=== PATIENT | female | born 1985 | race Caucasian/White ===

== ENCOUNTER → 2016-10-23 | Outpatient (CLI) | payer MEDICARE, MEDICAID ==
[~2016-10-23] MED LIST: BENZ1TAB6; BUDE90AE2 IH; HALO5TAB; LEVO500T2 PO; LORA0.5T; LURA120T; METF1000; OXYB5TAB9; PRAZ2CAP2; VENL75CA93
== END ==
LOC: RT 14:07
PROVIDERS: ATTEND Nurse Practitioner Family
DX: R06.02 Shortness of breath (principal)
CPT/HCPCS: 94060; 94726; 94729

== ENCOUNTER 2017-06-11 10:36 | Outpatient (CLI) | payer MEDICARE, MEDICAID ==
[~2017-06-11] VITALS: Ht 154.9 cm; Wt 113.4 kg
[~2017-06-11 10:36] MED LIST changes: -BENZ1TAB6; +BENZ1TAB6 PO; -HALO5TAB; +HALO5TAB PO; -LURA120T; +LURA120T PO
[2017-06-11] MEDS ORDERED: METF500T4 PO ×2 (11:25)
[2017-06-11] MEDS ORDERED: PRAZ2CAP2 PO ×2 (11:25)
[2017-06-11] MEDS ORDERED: NF-LAMO200 PO ×2 (11:25)
[2017-06-11] MEDS ORDERED: DULA0.75 SQ ×2 (11:25)
[2017-06-11] MEDS ORDERED: VENL150T PO ×2 (11:30)
[2017-06-11] MEDS ORDERED: ATOR40TA PO ×2 (11:30)
[2017-06-11] MEDS ORDERED: RT-ALBUINH IH ×2 (11:30)
[2017-06-11] MEDS ORDERED: UMEC62.5 IH ×2 (11:30)
[2017-06-11] MEDS ORDERED: VENL37.57 PO ×2 (11:30)
[2017-06-12] MEDS ORDERED: HYDR-3812 PO ×2 (14:10)
[2017-06-12] MEDS ORDERED: DOCU-143 PO ×2 (14:10)
== END 2017-06-11 11:33 ==
LOC: PREOP 10:36
PROVIDERS: ATTEND Surgery
DX: Z01.818 Encounter for other preprocedural examination (principal); L05.91 Pilonidal cyst without abscess

== ENCOUNTER 2017-06-12 10:47 | Day surgery (SDC) | payer MEDICARE, MEDICAID ==
[~2017-06-12] VITALS: Ht 154.9 cm; Wt 113.4 kg
[~2017-06-12 10:47] MED LIST changes: +ATOR40TA PO; +DULA0.75 SQ; +METF500T4 PO; +NF-LAMO200 PO; +PRAZ2CAP2 PO; +RT-ALBUINH IH; +UMEC62.5 IH; +VENL150T PO; +VENL37.57 PO
--- OUTSIDE RECORDS SUMMARY | 2017-06-12 10:51 | XMS REPORT ---
Author Author SUPRIYA RODRIGUEZ [facility] eClinicalWorks Address Unknown Phone Unavailable Care Team Providers Care Invoice Checker Name Role Phone SUPRIYA RODRIGUEZ CP Unavailable Allergies, Adverse Reactions, Alerts Substance Reaction Event Type Flexeril A-fib Drug Allergy Clozaril Info Not Available Drug Allergy Aspirin nose bleeds Drug Allergy Problems Problem Type Condition Code Onset Dates Condition Status Assessment Encounter for immunization Z23 Active Assessment Gastroesophageal reflux disease without esophagitis K21.9 Active Assessment Abdominal pain, right upper quadrant R10.11 Active Medications Medication Code System Code Instructions Start Date End Date Status Dosage Haloperidol [facility] [address]-17 5 mg December 28, 2014 take 1 tablet ( 5 mg) by oral route 2 times per day PRN Ativan [facility] [address]-84 0.5 mg December 28, 2014 take 1 tablet (0.5 mg) by oral route 2 times per day Omeprazole [facility] [address]-95 20 MG Orally Once a day Aug 03, 2014 take 1 capsule (20 mg) by oral route once daily before a meal Effexor XR [facility] [address]-92 150 MG Orally Sep 30, 2012 take 1 capsule (150 mg) by oral route once daily with food Lancets [facility] 0 - December 20, 2013 1 time per day ONE TOUCH DELICA LANCETS prazosin ND 0 2 mg orally Once a day at bedtime Sep 30, 2012 1 Oxybutynin Chloride [facility] [address]-15 5 MG Orally Twice a day February 21, 2015 1 tablet Metformin HCl [facility] [address]-88 1000 MG Orally Twice a day Jun 29, 2015 0.5 Victoza [facility] [address]-44 1.2 Once a day not defined benztropine ND 0 1 mg Jul 23, 2013 take 1 tablet (1 mg) by oral route 2 times per day Latuda [facility] [address]-59 120 MG Orally Nov 03, 2014 take 1 tablet by Oral route with food (at least 350 calories) 1 time per day Effexor NDC 0 75 MG Orally Once a day 1 tablet with food ProAir HFA [facility] [address]-52 90 mcg/actuation May 06, 2014 inhale 2 puffs by Inhalation route every 4-6 hours as needed PRN shortness of breath/cough Nicotine [facility] [address]-58 21 MG/24HR Transdermal Once a day Jul 19, 2015 Aug 18, 2015 1 patch to skin Procedures Procedure Coding System Code Date Office Visit, Est Pt., Level 3 CPT-4 13933 Aug 17, 2015 FLUARIX QUAD (3 & UP)-GSK-2014 CPT-4 23786 Aug 17, 2015 [facility] VISIT ESTABLISHED PATIENT CPT-4 G0467 Aug 17, 2015 SINGLE IMMUNIZATION ADMIN CPT-4 11416 Aug 17, 2015 Vital Signs Date/Time: Aug 17, 2015 Temperature 97.6 F Weight 258.2 lbs Height 62 in BMI 47.22 Index Blood Pressure Diastolic 72 mmHg Blood Pressure Systolic 124 mmHg Cardiac Monitoring Heart Rate 86 bpm Results No Known Results Immunizations Vaccine Administration Date FLUARIX QUAD (3 & UP)-GSK-2014Aug 17, 2015 Summary Purpose eClinicalWorks Submission
--- OUTSIDE RECORDS SUMMARY | 2017-06-12 10:51 | XMS REPORT ---
Author Author SUPRIYA RODRIGUEZ Organization eClinicalWorks Address Unknown Phone Unavailable Care Team Providers Care Wire Rope Fabrication Supervisor Name Role Phone SUPRIYA RODRIGUEZ CP Unavailable Allergies No Known Allergies Problems No Known Problems Medications Medication Code System Code Instructions Start Date End Date Status Dosage Atorvastatin Calcium [facility] [address]-82 40 MG Orally Once a day Sep 01, 2015 1 tablet Results No Known Results Summary Purpose eClinicalWorks Submission
--- OUTSIDE RECORDS SUMMARY | 2017-06-12 10:52 | XMS REPORT ---
Author Author SUPRIYA RODRIGUEZ [facility] eClinicalWorks Address Unknown Phone Unavailable Care Team Providers Care Payroll And Benefits Manager Name Role Phone SUPRIYA RODRIGUEZ CP Unavailable Allergies, Adverse Reactions, Alerts Substance Reaction Event Type Flexeril A-fib Drug Allergy Clozaril Info Not Available Drug Allergy Aspirin nose bleeds Drug Allergy Problems Problem Type Condition ICD-9 Code Onset Dates Condition Status Problem Screening for malignant neoplasm of the cervix V76.2 Active Assessment Esophageal reflux disease 530.81 Active Problem Dietary surveillance and counseling V65.3 Active Assessment Diabetes type 2, controlled 250.00 Active Problem Obesity, unspecified 278.00 Active Problem Irregular menstrual cycle 626.4 Active Problem Female stress incontinence 625.6 Active Problem Acute bronchitis 466.0 Active Problem Other abnormal glucose 790.29 Active Problem Throat pain 784.1 Active Problem Acute mucoid otitis media 381.02 Active Problem Diabetes type 2, controlled 250.00 Active Problem Nondependent tobacco use disorder 305.1 Active Problem Morbid obesity 278.01 Active Problem Hirsutism 704.1 Active Problem Heartburn 787.1 Active Problem Need for prophylactic vaccination and inoculation, Influenza V04.81 Active Problem Leukorrhea, not specified as infective 623.5 Active Problem Other and unspecified hyperlipidemia 272.4 Active Problem Other diseases of nasal cavity and sinuses 478.19 Active Problem Dysmetabolic Syndrome X 277.7 Active Problem Routine gynecological examination V72.31 Active Problem Counseling on substance use and abuse V65.42 Active Problem 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 Problem Unspecified procreative management V26.9 Active Medications Medication Code System Code Instructions Start Date End Date Status Dosage Omeprazole [facility] [address]-90 20 MG Orally Once a day Aug 03, 2014 take 1 capsule (20 mg) by oral route once daily before a meal benztropine NDC 0 1 mg Jul 23, 2013 take 1 tablet (1 mg) by oral route 2 times per day Haloperidol [facility] [address]-56 5 mg December 28, 2014 take 1 tablet ( 5 mg) by oral route 2 times per day PRN Effexor NDC 0 75 MG Orally Once a day 1 tablet with food prazosin NDC 0 2 mg orally Once a day at bedtime Sep 30, 2012 1 Latuda [facility] [address]-61 120 MG Orally Nov 03, 2014 take 1 tablet by Oral route with food (at least 350 calories) 1 time per day ProAir HFA [facility] [address]-36 90 mcg/actuation May 06, 2014 inhale 2 puffs by Inhalation route every 4-6 hours as needed PRN shortness of breath/cough Metformin HCl [facility] [address]-43 1000 MG Orally Twice a day Jun 29, 2015 1 tablet with meals Ativan [facility] [address]-64 0.5 mg December 28, 2014 take 1 tablet (0.5 mg) by oral route 2 times per day Oxybutynin Chloride [facility] [address]-02 5 MG Orally Twice a day February 21, 2015 1 tablet Effexor XR [facility] [address]-10 150 MG Orally Sep 30, 2012 take 1 capsule (150 mg) by oral route once daily with food Lancets [facility] 0 - December 20, 2013 1 time per day ONE TOUCH DELICA LANCETS Procedures Procedure Coding System Code Date [facility] VISIT ESTABLISHED PATIENT CPT-4 G0467 Jun 29, 2015 Office Visit, Est Pt., Level 3 CPT-4 73328 Jun 29, 2015 GLYCATED HEMOGLOBIN TEST CPT-4 33129 Jun 29, 2015 Vital Signs Date/Time: Jun 29, 2015 Temperature 98.8 F Weight 265.5 lbs Height 62 in BMI 48.56 Index Blood Pressure Diastolic 74 mmHg Blood Pressure Systolic 118 mmHg Cardiac Monitoring Heart Rate 92 bpm Results Name Result Date Reference Range Unit Abnormality Flag A1C (IN HOUSE) Summary Purpose eClinicalWorks Submission
--- OUTSIDE RECORDS SUMMARY | 2017-06-12 10:52 | XMS REPORT ---
Author Author SUPRIYA RODRIGUEZ Organization eClinicalWorks Address Unknown Phone Unavailable Care Team Providers Care Extruder Name Role Phone SUPRIYA RODRIGUEZ CP Unavailable Allergies No Known Allergies Problems Problem Type Condition Code Onset Dates Condition Status Problem Fatty liver K76.0 Active Problem Stress incontinence in female N39.3 Active Problem Diabetes type 2, controlled E11.9 Active Medications Medication Code System Code Instructions Start Date End Date Status Dosage Trulicity [facility] [address]-75 0.75 MG/0.5ML Subcutaneous once a week Oct 03, 2015 0.5 ml Results No Known Results Summary Purpose eClinicalWorks Submission
--- OUTSIDE RECORDS SUMMARY | 2017-06-12 10:52 | XMS REPORT ---
Author Author SUPRIYA RODRIGUEZ Organization eClinicalWorks Address Unknown Phone Unavailable Care Team Providers Care Silvering Applicator Name Role Phone SUPRIYA RODRIGUEZ CP Unavailable Allergies No Known Allergies Problems Problem Type Condition Code Onset Dates Condition Status Assessment Diabetes mellitus without mention of complication, type II or unspecified type, not stated as uncontrolled 250.00 Active Medications No Known Medications Procedures Procedure Coding System Code Date VENIPUNCT, ROUTINE* CPT-4 48302 Aug 29, 2015 MICROALBUMIN, SEMIQUANT CPT-4 85617 Aug 29, 2015 [facility] NOBLL Aug 29, 2015 Results Name Result Date Reference Range Unit Abnormality Flag ROUTINE VENIPUNCTURE Summary Purpose eClinicalWorks Submission
--- OUTSIDE RECORDS SUMMARY | 2017-06-12 10:52 | XMS REPORT ---
Author Author SUPRIYA RODRIGUEZ Organization eClinicalWorks Address Unknown Phone Unavailable Care Team Providers Care Court Recording Monitor Name Role Phone SUPRIYA RODRIGUEZ CP Unavailable Allergies No Known Allergies Problems Problem Type Condition Code Onset Dates Condition Status Problem Stress incontinence in female N39.3 Active Problem Self-mutilation Z72.89 Active Problem Anxiety F41.9 Active Problem Abrasion hip/leg S80.819A Active Problem Diabetes type 2, controlled E11.9 Active Problem Fatty liver K76.0 Active Problem Gastroesophageal reflux disease without esophagitis K21.9 Active Problem Callus of foot L84 Active Medications No Known Medications Results No Known Results Summary Purpose eClinicalWorks Submission
--- OUTSIDE RECORDS SUMMARY | 2017-06-12 10:52 | XMS REPORT ---
Author Author SUPRIYA RODRIGUEZ Organization eClinicalWorks Address Unknown Phone Unavailable Care Team Providers Care Kelp Gatherer Name Role Phone SUPRIYA RODRIGUEZ CP Unavailable Allergies No Known Allergies Problems No Known Problems Medications Medication Code System Code Instructions Start Date End Date Status Dosage Atorvastatin Calcium [facility] [address]-66 20 MG Orally Once a day Aug 25, 2015 1 tablet Results No Known Results Summary Purpose eClinicalWorks Submission
--- OUTSIDE RECORDS SUMMARY | 2017-06-12 10:52 | XMS REPORT ---
Author Author SUPRIYA RODRIGUEZ Organization eClinicalWorks Address Unknown Phone Unavailable Care Team Providers Care Automotive Internet Sales Manager Name Role Phone SUPRIYA RODRIGUEZ CP Unavailable Allergies No Known Allergies Problems Problem Type Condition Code Onset Dates Condition Status Problem Diabetes type 2, controlled E11.9 Active Problem Fatty liver K76.0 Active Problem Callus of foot L84 Active Problem Stress incontinence in female N39.3 Active Medications Medication Code System Code Instructions Start Date End Date Status Dosage Nicoderm [facility] [address]-30 14 MG/24HR Transdermal Once a day May 14, 2016 1 patch to skin Results No Known Results Summary Purpose eClinicalWorks Submission
--- OUTSIDE RECORDS SUMMARY | 2017-06-12 10:52 | XMS REPORT ---
Author Author SUPRIAY RODRIGUEZ Organization eClinicalWorks Address Unknown Phone Unavailable Care Team Providers Care Business Sales Consultant Name Role Phone SUPRIYA RODRIGUEZ CP Unavailable Allergies No Known Allergies Problems Problem Type Condition Code Onset Dates Condition Status Problem Gastroesophageal reflux disease without esophagitis K21.9 Active Problem Callus of foot L84 Active Problem Anxiety F41.9 Active Problem Stress incontinence in female N39.3 Active Assessment Encounter for immunization Z23 Active Problem Diabetes type 2, controlled E11.9 Active Problem Fatty liver K76.0 Active Medications No Known Medications Procedures Procedure Coding System Code Date SINGLE IMMUNIZATION ADMIN CPT-4 97199 Jul 16, 2016 FLUARIX QUAD P-FREE 3 AND UP .50 2015 CPT-4 83447 Jul 16, 2016 Results No Known Results Immunizations Vaccine Administration Date FLUARIX QUAD P-FREE 3 AND UP .50 2015Jul 16, 2016 Summary Purpose eClinicalWorks Submission
--- OUTSIDE RECORDS SUMMARY | 2017-06-12 10:52 | XMS REPORT ---
Author Author SUPRIYA RODRIGUEZ [facility] eClinicalWorks Address Unknown Phone Unavailable Care Team Providers Care Drain Layer Name Role Phone SUPRIYA RODRIGUEZ CP Unavailable Allergies, Adverse Reactions, Alerts Substance Reaction Event Type Flexeril A-fib Drug Allergy Clozaril Info Not Available Drug Allergy Aspirin nose bleeds Drug Allergy Problems Problem Type Condition Code Onset Dates Condition Status Assessment Self-mutilation Z72.89 Active Problem Stress incontinence in female N39.3 Active Assessment Abrasion hip/leg S80.819A Active Assessment Diabetes type 2, controlled E11.9 Active Problem Self-mutilation Z72.89 Active Problem Anxiety F41.9 Active Problem Abrasion hip/leg S80.819A Active Problem Diabetes type 2, controlled E11.9 Active Problem Fatty liver K76.0 Active Problem Gastroesophageal reflux disease without esophagitis K21.9 Active Problem Callus of foot L84 Active Medications Medication Code System Code Instructions Start Date End Date Status Dosage Vistaril [facility] [address]-09 25 MG Orally 4 times a day 1 capsule as needed Bactroban [facility] [address]-58 2 % Externally 2 times a day Aug 20, 2016 Aug 27, 2016 1 application to affected area Effexor XR [facility] [address]-82 75 MG Orally Once a day 1 capsule with food prazosin ND 0 2 mg orally Once a day at bedtime Sep 30, 2012 1 Atorvastatin Calcium [facility] 36015527406 40 MG Orally Once a day 1 tablet Latuda [facility] [address]-20 40 mg Orally Once a day at night 1 tablet with food Lamictal [facility] [address]-54 200 MG Orally Once a day 1 tablets Trulicity [facility] 35166685883 0.75 MG/0.5ML Subcutaneous once a week 0.5 ml Haloperidol [facility] [address]-12 5 mg December 28, 2014 take 1 tablet ( 5 mg) by oral route 2 times per day PRN benztropine ND 0 1 mg 2 times a day Jul 23, 2013 take 1 tablet (1 mg) in am and 2 tabs in pm ProAir HFA [facility] [address]-51 90 mcg/actuation Inhalation every 4-6 hours May 06, 2014 inhale 2 puffs by Inhalation route every 4-6 hours as needed PRN shortness of breath/cough Triamcinolone Acetonide [facility] [address]-73 0.1 % Externally Twice a day January 23, 2016 1 application to affected area Metformin HCl [facility] [address]-49 500 MG Orally Twice a day Oct 31, 2015 1 tablet with meals Effexor XR [facility] [address]-92 150 MG Orally Sep 30, 2012 take 1 capsule (150 mg) by oral route once daily with food Lancets [facility] 0 - December 20, 2013 1 time per day ONE TOUCH DELICA LANCETS Omeprazole [facility] [address]-58 20 mg Orally Once a day Aug 03, 2014 take 1 capsule (20 mg) by oral route once daily before a meal Latuda [facility] [address]-95 120 MG Orally Nov 03, 2014 take 1 tablet by Oral route with food (at least 350 calories) 1 time per day Procedures Procedure Coding System Code Date [facility] VISIT ESTABLISHED PATIENT CPT-4 G0467 Aug 20, 2016 Office Visit, Est Pt., Level 3 CPT-4 05802 Aug 20, 2016 [facility] NOB[facility] Aug 20, 2016 VENIPUNCT, ROUTINE* CPT-4 48611 Aug 20, 2016 Vital Signs Date/Time: Aug 20, 2016 Cardiac Monitoring Heart Rate 91 bpm Weight 242 lbs Height 62 in BMI 44.26 Index Blood Pressure Diastolic 70 mmHg Blood Pressure Systolic 110 mmHg Results Name Result Date Reference Range Unit Abnormality Flag ROUTINE VENIPUNCTURE Summary Purpose eClinicalWorks Submission
--- OUTSIDE RECORDS SUMMARY | 2017-06-12 10:52 | XMS REPORT ---
Author Author SUPRIYA RODRIGUEZ Organization eClinicalWorks Address Unknown Phone Unavailable Care Team Providers Care Manager Of Purchasing Name Role Phone SUPRIYA RODRIGUEZ CP Unavailable Allergies No Known Allergies Problems Problem Type Condition Code Onset Dates Condition Status Assessment Type 2 diabetes mellitus without complications E11.9 Active Medications No Known Medications Results No Known Results Summary Purpose eClinicalWorks Submission
--- OUTSIDE RECORDS SUMMARY | 2017-06-12 10:52 | XMS REPORT ---
Author Author SUPRIYA RODRIGUEZ [facility] eClinicalWorks Address Unknown Phone Unavailable Care Team Providers Care Restaurant Mgr Name Role Phone SUPRIYA RODRIGUEZ CP Unavailable Allergies, Adverse Reactions, Alerts Substance Reaction Event Type Flexeril A-fib Drug Allergy Clozaril Info Not Available Drug Allergy Aspirin nose bleeds Drug Allergy Problems Problem Type Condition Code Onset Dates Condition Status Problem Fatty liver K76.0 Active Problem Stress incontinence in female N39.3 Active Problem Diabetes type 2, controlled E11.9 Active Assessment Stress incontinence in female N39.3 Active Assessment Diabetes type 2, controlled E11.9 Active Assessment Fatty liver K76.0 Active Medications Medication Code System Code Instructions Start Date End Date Status Dosage Lancets [facility] 0 - December 20, 2013 1 time per day ONE TOUCH DELICA LANCETS ProAir HFA [facility] [address]-10 90 mcg/actuation May 06, 2014 inhale 2 puffs by Inhalation route every 4-6 hours as needed PRN shortness of breath/cough Ativan [facility] [address]-20 0.5 mg December 28, 2014 take 1 tablet (0.5 mg) by oral route 2 times per day Oxybutynin Chloride [facility] [address]-95 5 MG Orally Twice a day Sep 26, 2015 2 tablet Omeprazole [facility] [address]-82 20 MG Orally Once a day Aug 03, 2014 take 1 capsule (20 mg) by oral route once daily before a meal Latuda [facility] [address]-89 120 MG Orally Nov 03, 2014 take 1 tablet by Oral route with food (at least 350 calories) 1 time per day Haloperidol [facility] [address]-32 5 mg December 28, 2014 take 1 tablet ( 5 mg) by oral route 2 times per day PRN prazosin [facility] 0 2 mg orally Once a day at bedtime Sep 30, 2012 1 Effexor XR [facility] [address]-02 150 MG Orally Sep 30, 2012 take 1 capsule (150 mg) by oral route once daily with food Oxybutynin Chloride [facility] [address]-94 5 MG Orally Twice a day February 21, 2015 1 tablet Atorvastatin Calcium [facility] [address]-09 40 MG Orally Once a day Sep 01, 2015 1 tablet benztropine [facility] 0 1 mg Jul 23, 2013 take 1 tablet (1 mg) by oral route 2 times per day Victoza [facility] [address]-49 18 MG/3ML Subcutaneous Once a day Sep 26, 2015 0.2 ml Lamictal [facility] [address]-41 25 MG Orally Once a day 1 tablets Procedures Procedure Coding System Code Date Office Visit, Est Pt., Level 3 CPT-4 08582 Sep 26, 2015 [facility] VISIT ESTABLISHED PATIENT CPT-4 G0467 Sep 26, 2015 Vital Signs Date/Time: Sep 26, 2015 Temperature 97.0 F Weight 261.3 lbs Height 62 in BMI 47.79 Index Blood Pressure Diastolic 90 mmHg Blood Pressure Systolic 118 mmHg Cardiac Monitoring Heart Rate 87 bpm Results No Known Results Summary Purpose eClinicalWorks Submission
--- OUTSIDE RECORDS SUMMARY | 2017-06-12 10:52 | XMS REPORT ---
Author Author [facility] Address [address] [place] [address] Care Team Providers Care Corporate Development Analyst Name Role Phone SUPRIYA RODRIGUEZ Unavailable PROBLEMS Type Condition ICD9-CM Code XES19-VP Code Onset Dates Condition Status SNOMED Code Problem Gastroesophageal reflux disease without esophagitis K21.9 Active 454373966 Problem Callus of foot L84 Active 090357223 Problem Stress incontinence in female N39.3 Active 57382480 Assessment Diabetes type 2, controlled E11.9 Jun, Active 65776762 Problem Diabetes type 2, controlled E11.9 Active 95665546 Problem Fatty liver K76.0 Active 316654747 ALLERGIES Substance Reaction Event Type Date Status Flexeril A-fib Drug Allergy Jun, Active Clozaril Unknown Drug Allergy Jun, Active Aspirin nose bleeds Drug Allergy Jun, Active SOCIAL HISTORY No smoking Hx information available PLAN OF CARE VITAL SIGNS Height 62 in 2016-06-27 Weight 237.3 lbs 2016-06-27 Heart Rate 90 bpm 2016-06-27 Respiratory Rate 18 2016-06-27 BMI 43.40 kg/m2 2016-06-27 Blood pressure systolic 148 mmHg 2016-06-27 Blood pressure diastolic 88 mmHg 2016-06-27 MEDICATIONS Medication Instructions Dosage Frequency Start Date End Date Duration Status Metformin HCl 500 MG Orally Twice a day 1 tablet with meals 12h Oct, Active Latuda 120 MG take 1 tablet by Oral route with food (at least 350 calories ) 1 time per day Oct, Active Atorvastatin Calcium 40 MG Orally Once a day 1 tablet 24h Active ProAir HFA 90 mcg/actuation Inhalation every 4-6 hours inhale 2 puffs by Inhalation route every 4-6 hours as needed PRN shortness of breath/cough Apr, Active prazosin 2 mg orally Once a day at bedtime 1 Sep, Active Lamictal 200 MG Orally Once a day 1 tablets 24h Active Lancets - 1 time per day ONE TOUCH DELICA LANCETS Dec, Active Effexor XR 150 MG take 1 capsule (150 mg) by oral route once daily with food Sep, Active Vistaril 25 MG Orally 4 times a day 1 capsule as needed 6h Active benztropine 1 mg take 1 tablet (1 mg) in am and 2 tabs in pm 12h Jul, Active Omeprazole 20 mg Orally Once a day take 1 capsule (20 mg) by oral route once daily before a meal 24h Jul, Active ProAir HFA 108 (90 Base) MCG/ACT INHALE TWO (2) PUFFS BY MOUTH EVERY FOUR ( 4) TO SIX (6) HOURS NEEDED FOR SHORTNESS OF BREATH/COUGH. Active Trulicity 0.75 MG/0.5ML Subcutaneous once a week 0.5 ml Sep, Active Trulicity 0.75 MG/0.5ML Subcutaneous once a week 0.5 ml Active Effexor XR 75 MG Orally Once a day 1 capsule with food 24h Active Triamcinolone Acetonide 0.1 % Externally Twice a day 1 application to affected area 12h Jan, Active Haloperidol 5 mg take 1 tablet (5 mg) by oral route 2 times per day PRN Dec, Active RESULTS Name Result Date Reference Range A1C (IN HOUSE) 2016-06-27 A1C IN HOUSE 5.7 4.3 - 5.6 % Previous A1c 5.7 Lot [id number] Exp date 01/2018 PROCEDURES Procedure Date Ordered Related Diagnosis Body Site GLYCATED HEMOGLOBIN TEST Jun 27, 2016 [facility] VISIT ESTABLISHED PATIENT Jun 27, 2016 Office Visit, Est Pt., Level 3 Jun 27, 2016 IMMUNIZATIONS No Known Immunizations
--- OUTSIDE RECORDS SUMMARY | 2017-06-12 10:53 | XMS REPORT ---
Author Author CHERYL JI [facility] eClinicalWorks Address Unknown Phone Unavailable Care Team Providers Care Biologics Specialist Name Role Phone CHERYL JI Unavailable Allergies, Adverse Reactions, Alerts Substance Reaction Event Type Flexeril A-fib Drug Allergy Clozaril Info Not Available Drug Allergy Aspirin nose bleeds Drug Allergy Problems Problem Type Condition Code Onset Dates Condition Status Problem Obesity, unspecified 278.00 Active Problem Irregular menstrual cycle 626.4 Active Problem Female stress incontinence 625.6 Active Problem Acute bronchitis 466.0 Active Problem Throat pain 784.1 Active Problem Other abnormal glucose 790.29 Active Problem Acute mucoid otitis media 381.02 Active Problem Nondependent tobacco use disorder 305.1 Active Problem Diabetes type 2, controlled 250.00 Active Problem Morbid obesity 278.01 Active Problem [...] 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 Problem Screening for malignant neoplasm of the cervix V76.2 Active Assessment Bronchitis 490 Active Problem Unspecified procreative management V26.9 Active Problem Dietary surveillance and counseling V65.3 Active Medications Medication Code System Code Instructions Start Date End Date Status Dosage Latuda [facility] [address]-40 120 MG Orally Nov 03, 2014 take 1 tablet by Oral route with food (at least 350 calories) 1 time per day Lancets [facility] 0 - December 20, 2013 1 time per day ONE TOUCH DELICA LANCETS Omeprazole [facility] [address]-17 20 MG Orally Once a day Aug 03, 2014 take 1 capsule (20 mg) by oral route once daily before a meal Effexor NDC 0 75 MG Orally Once a day 1 tablet with food Metformin HCl [facility] [address]-86 1000 MG Orally Twice a day Jun 29, 2015 0.5 benztropine NDC 0 1 mg Jul 23, 2013 take 1 tablet (1 mg) by oral route 2 times per day Benzonatate [facility] [address]-31 200 MG Orally Three times a day Jul 19, 2015 1 capsule as needed Saxenda [facility] [address]50[address]-46 18 mg/3 mL Subcutaneous Once a day Jul 13, 2015 Week 1: 0.6 mg, Week 2: 1.2 mg, Week 3: 1.8mg, Week 4: 2.4mg, Week 5 3.0 mg (GOAL) Haloperidol [facility] [address]-30 5 mg December 28, 2014 take 1 tablet ( 5 mg) by oral route 2 times per day PRN Nicotine [facility] [address]-22 21 MG/24HR Transdermal Once a day Jul 19, 2015 Aug 18, 2015 1 patch to skin Oxybutynin Chloride [facility] [address]-43 5 MG Orally Twice a day February 21, 2015 1 tablet Ativan [facility] [address]-00 0.5 mg December 28, 2014 take 1 tablet (0.5 mg) by oral route 2 times per day Azithromycin [facility] [address]-76 250 MG Orally Once a day Jul 19, 2015 Jul 24, 2015 2 tablets on the first day, then 1 tablet daily for 4 days prazosin NDC 0 2 mg orally Once a day at bedtime Sep 30, 2012 1 Effexor XR [facility] [address]-01 150 MG Orally Sep 30, 2012 take 1 capsule (150 mg) by oral route once daily with food ProAir HFA [facility] [address]-05 90 mcg/actuation May 06, 2014 inhale 2 puffs by Inhalation route every 4-6 hours as needed PRN shortness of breath/cough Procedures Procedure Coding System Code Date THER/PROPH/DIAG INJ, SC/IM CPT-4 13234 Jul 19, 2015 DEPO MEDROL 40 MG/ML CPT-4 J1030 Jul 19, 2015 KENALOG 40 MG/ML (PER 10 MG) CPT-4 J3301 Jul 19, 2015 Office Visit, Est Pt., Level 3 CPT-4 29754 Jul 19, 2015 [facility] VISIT ESTABLISHED PATIENT CPT-4 G0467 Jul 19, 2015 Vital Signs Date/Time: Jul 19, 2015 Temperature 97.8 F Weight 269 lbs Height 62 in BMI 49.20 Index Blood Pressure Diastolic 70 mmHg Blood Pressure Systolic 130 mmHg Cardiac Monitoring Heart Rate 88 bpm Results No Known Results Summary Purpose eClinicalWorks Submission
--- OUTSIDE RECORDS SUMMARY | 2017-06-12 10:53 | XMS REPORT ---
Author Author SUPRIYA RODRIGUEZ Organization [employer] Address Unknown Phone Unavailable Care Team Providers Care Medical Record Technician Name Role Phone MICHAEL SUPRIYA CP Unavailable Allergies No Known Allergies Problems [...] malignant neoplasm of the cervix V76.2 Active Problem Unspecified procreative management V26.9 Active Problem Dietary surveillance and counseling V65.3 Active Medications Medication Code System Code Instructions Start Date End Date Status Dosage Victoza [facility] [address]-26 18 MG/3ML Subcutaneous Once a day Jul 24, 2015 0.6 mg daily X 2 weeks then 1.2 mg daily Results No Known Results Summary Purpose eClinicalWorks Submission
--- OUTSIDE RECORDS SUMMARY | 2017-06-12 10:53 | XMS REPORT ---
Author Author SUPRIYA RODRIGUEZ [facility] eClinicalWorks Address Unknown Phone Unavailable Care Team Providers Care Appraiser Land Name Role Phone SUPRIYA RODRIGUEZ CP Unavailable Allergies, Adverse Reactions, Alerts Substance Reaction Event Type Flexeril A-fib Drug Allergy Clozaril Info Not Available Drug Allergy Aspirin nose bleeds Drug Allergy Problems Problem Type Condition Code Onset Dates Condition Status Problem Fatty liver K76.0 Active Problem Stress incontinence in female N39.3 Active Problem Diabetes type 2, controlled E11.9 Active Assessment Diabetes type 2, controlled E11.9 Active Assessment Stress incontinence in female N39.3 Active Medications Medication Code System Code Instructions Start Date End Date Status Dosage Metformin HCl [facility] [address]-11 500 MG Orally Twice a day Oct 31, 2015 1 tablet with meals Haloperidol [facility] [address]-02 5 mg December 28, 2014 take 1 tablet ( 5 mg) by oral route 2 times per day PRN Atorvastatin Calcium [facility] [address]-74 40 MG Orally Once a day Sep 01, 2015 1 tablet Oxybutynin Chloride [facility] [address]-68 5 MG Orally Twice a day Sep 26, 2015 2 tablet ProAir HFA [facility] [address]-99 90 mcg/actuation May 06, 2014 inhale 2 puffs by Inhalation route every 4-6 hours as needed PRN shortness of breath/cough Latuda [facility] [address]-70 120 MG Orally Nov 03, 2014 take 1 tablet by Oral route with food (at least 350 calories) 1 time per day Ativan [facility] [address]-87 0.5 mg December 28, 2014 take 1 tablet (0.5 mg) by oral route 2 times per day Effexor XR [facility] [address]-19 150 MG Orally Sep 30, 2012 take 1 capsule (150 mg) by oral route once daily with food Omeprazole [facility] [address]-03 20 MG Orally Once a day Aug 03, 2014 take 1 capsule (20 mg) by oral route once daily before a meal benztropine NDC 0 1 mg 2 times a day Jul 23, 2013 take 1 tablet (1 mg) in am and 2 tabs in pm Lancets NDC 0 - December 20, 2013 1 time per day ONE TOUCH DELICA LANCETS prazosin NDC 0 2 mg orally Once a day at bedtime Sep 30, 2012 1 Effexor XR [facility] [address]-97 75 MG Orally Once a day 1 capsule with food Lamictal [facility] [address]-65 100 MG Orally Once a day 1 tablets Trulicity [facility] [address]-87 0.75 MG/0.5ML Subcutaneous once a week Oct 03, 2015 0.5 ml Procedures Procedure Coding System Code Date URINALYSIS, AUTO, W/O SCOPE CPT-4 30585 Oct 31, 2015 [facility] VISIT ESTABLISHED PATIENT CPT-4 G0467 Oct 31, 2015 GLYCATED HEMOGLOBIN TEST CPT-4 02313 Oct 31, 2015 Office Visit, Est Pt., Level 3 CPT-4 70987 Oct 31, 2015 Vital Signs Date/Time: Oct 31, 2015 Temperature 97.7 F Weight 254.3 lbs Height 62 in BMI 46.51 Index Blood Pressure Diastolic 70 mmHg Blood Pressure Systolic 114 mmHg Cardiac Monitoring Heart Rate 67 bpm Results Name Result Date Reference Range Unit Abnormality Flag A1C (IN HOUSE) ----A1C IN HOUSE 6.0 20151031 4.30 - 5.6 % ----Previous A1c 6.2 20151031 ----Lot # [id number] [id number] ----Exp date 20151031 UA LONG DIP (IN HOUSE) ----DAYANA neg 20151031 ----GLU neg 20151031 ----SG 1.010 20151031 ----KET neg 20151031 ----pH 6.0 20151031 ----Protein neg 20151031 ----BLO neg 20151031 ----LYNDON neg 20151031 ----Color yellow 20151031 ----Odor none 20151031 ----Exp date 20151031 ----URO 0.2 20151031 ----NIT neg 20151031 ----Clarity clear 20151031 ----Lot # [id number] Summary Purpose eClinicalWorks Submission
--- OUTSIDE RECORDS SUMMARY | 2017-06-12 10:53 | XMS REPORT ---
Author Author [facility] Address Unknown Phone Unavailable Care Team Providers Care Network Operations Project Manager Name Role Phone CATRACHITO DUPREE Unavailable Unavailable PROBLEMS Type Condition ICD9-CM Code [id number] Code Onset Dates Condition Status SNOMED Code Assessment Anxiety F41.9 08 Jun, 2016 Active 25157427 Problem Anxiety F41.9 Active 43563723 Problem Gastroesophageal reflux disease without esophagitis K21.9 Active 078180411 Problem Fatty liver K76.0 Active 184280326 Problem Stress incontinence in female N39.3 Active 91533449 Problem Callus of foot L84 Active 286615677 Problem Diabetes type 2, controlled E11.9 Active 92986289 ALLERGIES Unknown Allergies SOCIAL HISTORY No smoking Hx information available PLAN OF CARE VITAL SIGNS MEDICATIONS Unknown Medications RESULTS No Results PROCEDURES No Known procedures IMMUNIZATIONS No Known Immunizations
--- OUTSIDE RECORDS SUMMARY | 2017-06-12 10:53 | XMS REPORT ---
Author [facility] [place] Address [address] [place] [address] Care Team Providers Care Switch Adjuster Name Role Phone [place] GARCIAARDO Unavailable PROBLEMS Type Condition ICD9-CM Code NOV43-EW Code Onset Dates Condition Status SNOMED Code Assessment Encounter for dental examination Z01.20 Aug, Active 984031841 Problem Fatty liver K76.0 Active 301753525 Problem Stress incontinence in female N39.3 Active 36068467 Problem Abrasion hip/leg S80.819A Active 557056015 Problem Self-mutilation Z72.89 Active 077288009 Problem Callus of foot L84 Active 305947521 Problem Diabetes type 2, controlled E11.9 Active 77718011 Problem Anxiety F41.9 Active 13054370 Problem Gastroesophageal reflux disease without esophagitis K21.9 Active 941670483 ALLERGIES Substance Reaction Event Type Date Status Flexeril A-fib Drug Allergy Aug, Active Clozaril Unknown Drug Allergy Aug, Active Aspirin nose bleeds Drug Allergy Aug, Active SOCIAL HISTORY No smoking Hx information available PLAN OF CARE VITAL SIGNS Height 62 in 2016-09-16 Heart Rate 90 bpm 2016-09-16 Blood pressure systolic 125 mmHg 2016-09-16 Blood pressure diastolic 77 mmHg 2016-09-16 MEDICATIONS Medication Instructions Dosage Frequency Start Date End Date Duration Status Latuda 120 MG take 1 tablet by Oral route with food (at least 350 calories ) 1 time per day Oct, Active Lancets - 1 time per day ONE TOUCH DELICA LANCETS Dec, Active Effexor XR 150 MG take 1 capsule (150 mg) by oral route once daily with food Sep, Active ProAir HFA 90 mcg/actuation Inhalation every 4-6 hours inhale 2 puffs by Inhalation route every 4-6 hours as needed PRN shortness of breath/cough Apr, Active Haloperidol 5 mg take 1 tablet (5 mg) by oral route 2 times per day PRN 11 Dec, 2014 Active Latuda 40 mg Orally Once a day at night 1 tablet with food Active Vistaril 25 MG Orally 4 times a day 1 capsule as needed 6h Active Effexor XR 75 MG Orally Once a day 1 capsule with food 24h Active Atorvastatin Calcium 40 MG Orally Once a day 1 tablet 24h Active benztropine 1 mg take 1 tablet (1 mg) in am and 2 tabs in pm 12h 04 Jul, 2013 Active Trulicity 0.75 MG/0.5ML Subcutaneous once a week 0.5 ml Active Lamictal 200 MG Orally Once a day 1 tablets 24h Active prazosin 2 mg orally Once a day at bedtime 1 12 Sep, 2012 Active Metformin HCl 500 MG Orally Twice a day 1 tablet with meals 12h Oct, Active Triamcinolone Acetonide 0.1 % Externally Twice a day 1 application to affected area 12h Jan, Active Omeprazole 20 mg Orally Once a day take 1 capsule (20 mg) by oral route once daily before a meal 24h 15 Jul, 2014 Active RESULTS No Results PROCEDURES Procedure Date Ordered Related Diagnosis Body Site LTD ORAL EVALUATION - PROBLEM FOCUS Sep 16, 2016 INTRAORL-PERIAPICAL 1 FILM 66444 Sep 16, 2016 BITEWING - SINGLE FILM Sep 16, 2016 INTRAORL-PERIAPICAL EA ADD FILM Sep 16, 2016 IMMUNIZATIONS No Known Immunizations
--- OUTSIDE RECORDS SUMMARY | 2017-06-12 10:54 | XMS REPORT | Continuity of Care Document ---
Author Author [facility] Address Unknown Phone Unavailable Allergies Active Description Code Type Severity Reaction Onset Reported/Identified Relationship to Patient Clinical Status Yes aspirin [id number] Drug Allergy Unknown N/A 01/18/2006 Yes SEAFOOD SEAFOOD Unknown N/A 01/18/2006 Yes aspirin Drug Allergy N/A N/A 09/30/2012 Yes Clozaril Drug Allergy N/A N/A 09/30/2012 Yes Flexeril Drug Allergy N/A N/A 09/30/2012 Yes aspirin Drug Allergy 09/30/2012 Yes Clozaril Drug Allergy 09/30/2012 Yes Flexeril Drug Allergy 09/30/2012 Medications Problems Date Dx Coded Attending Type Code Diagnosis Diagnosed By 09/30/2012 692.2 CONTACT DERMATITIS DUE TO SOLVENTS 09/30/2012 692.2 CONTACT DERMATITIS DUE TO SOLVENTS 09/30/2012 HERNANDEZ DO, DARION K 692.2 CONTACT DERMATITIS DUE TO SOLVENTS 09/30/2012 HERNANDEZ DO DARION K 692.2 CONTACT DERMATITIS DUE TO SOLVENTS 09/30/2012 CHERYL JI APRN 692.2 CONTACT DERMATITIS DUE TO SOLVENTS 09/30/2012 CHERYL JI APRN 692.2 CONTACT DERMATITIS DUE TO SOLVENTS 09/30/2012 J CARLOS DOBBS APRN 692.2 CONTACT DERMATITIS DUE TO SOLVENTS 09/30/2012 J CARLOS DOBBS APRN 692.2 CONTACT DERMATITIS DUE TO SOLVENTS 09/30/2012 SUPRIYA RODRIGUEZ APRN 692.2 CONTACT DERMATITIS DUE TO SOLVENTS 09/30/2012 HERNANDEZ DO, DARION K 692.2 CONTACT DERMATITIS DUE TO SOLVENTS 09/30/2012 HERNANDEZ , DARION K 692.2 CONTACT DERMATITIS DUE TO SOLVENTS 09/30/2012 HERNANDEZ DO, DARION K 692.2 CONTACT DERMATITIS DUE TO SOLVENTS 09/30/2012 HERNANDEZ DO, DARION K 692.2 CONTACT DERMATITIS DUE TO SOLVENTS 09/30/2012 DARRIAN INSIDE SALES PERSON, SANDY A 692.2 CONTACT DERMATITIS DUE TO SOLVENTS 01/18/2013 466.0 BRONCHITIS, ACUTE 01/18/2013 HERNANDEZ DO DARION K 466.0 BRONCHITIS, ACUTE 01/18/2013 HERNANDEZ DO, DARION K 466.0 BRONCHITIS, ACUTE 01/18/2013 CHERYL JI APRN E 466.0 BRONCHITIS, ACUTE 01/18/2013 CHERYL JI APRN 466.0 BRONCHITIS, ACUTE 01/18/2013 DOBBS J CARLOS HINSON 466.0 ACUTE BRONCHITIS 01/18/2013 DOBBS J CARLOS HINSON 466.0 ACUTE BRONCHITIS 01/18/2013 EATON SUPRIYA HINSON 466.0 ACUTE BRONCHITIS 01/18/2013 HERNANDEZ DO, DARION K 466.0 ACUTE BRONCHITIS 01/18/2013 HERNANDEZ DO, DARION K 466.0 ACUTE BRONCHITIS 01/18/2013 HERNANDEZ DO, DARION K 466.0 ACUTE BRONCHITIS 01/18/2013 HERNANDEZ DO, DARION K 466.0 ACUTE BRONCHITIS 01/18/2013 DARRIANCOLEEN HINSON SANDY A 466.0 BRONCHITIS, ACUTE 07/23/2013 HERNANDEZ DO, DARION K 787.1 HEARTBURN 07/23/2013 HERNANDEZ DO, DARION K V04.81 FLU SHOT 07/23/2013 HERNANDEZ DO, DARION K 787.1 HEARTBURN 07/23/2013 HERNANDEZ DO, DARION K V04.81 FLU SHOT 07/23/2013 HELCHERYL ROMERO APRN E 787.1 HEARTBURN 07/23/2013 CHERYL JI APRN E V04.81 FLU SHOT 07/23/2013 HELCHERYL ROMERO APRN E 787.1 HEARTBURN 07/23/2013 HELLCHERYL GARCIA APRN E V04.81 FLU SHOT 07/23/2013 DOBBS J CARLOS HINSON 787.1 HEARTBURN 07/23/2013 DOBBS J CARLOS HINSON V04.81 FLU SHOT 07/23/2013 DOBBS J CARLOS HINSON 787.1 HEARTBURN 07/23/2013 DOBBS J CARLOS HINSON V04.81 FLU SHOT 07/23/2013 EATON SUPRIYA HINSON 787.1 HEARTBURN 07/23/2013 MICHAEL SUPRIYA HINSON V04.81 FLU SHOT 07/23/2013 HERNANDEZ DO, DARION K 787.1 HEARTBURN 07/23/2013 HERNANDEZ DO, DARION K V04.81 FLU SHOT 07/23/2013 HERNANDEZ DO, DARION K 787.1 HEARTBURN 07/23/2013 HERNANDEZ DO, DARION K V04.81 FLU SHOT 07/23/2013 HERNANDEZ DO, DARION K 787.1 HEARTBURN 07/23/2013 HERNANDEZ DO, DARION K V04.81 FLU SHOT 07/23/2013 HERNANDEZ DO, DARION K 787.1 HEARTBURN 07/23/2013 HERNANDEZ DO, DARION K V04.81 FLU SHOT 07/23/2013 DARRIAN INSIDE SALES PERSON, SANDY A 787.1 HEARTBURN 07/23/2013 DARRIAN INSIDE SALES PERSON, SANDY A V04.81 FLU SHOT 12/20/2013 HERNANDEZ DO, DARION K 790.29 OTHER ABNORMAL GLUCOSE 12/20/2013 JUANCHO JI APRNE E 250.00 DIABETES II CONTROLLED (UNCOMPLICATED ) 12/20/2013 BRIDGETTE JI APRNSIE E 790.29 OTHER ABNORMAL GLUCOSE 12/20/2013 GARRISON HINSON CHERYL E 250.00 DIABETES II CONTROLLED (UNCOMPLICATED ) 12/20/2013 HELBRIDGETTE ROMERO APRNSIE E 790.29 OTHER ABNORMAL GLUCOSE 12/20/2013 J CARLOS DOBBS APRN J 250.00 DIABETES II CONTROLLED (UNCOMPLICATED ) 12/20/2013 J CARLOS DOBBS APRN J 790.29 OTHER ABNORMAL GLUCOSE 12/20/2013 J CARLOS DOBBS APRN J 250.00 DIABETES II CONTROLLED (UNCOMPLICATED ) 12/20/2013 J CARLOS DOBBS APRN J 790.29 OTHER ABNORMAL GLUCOSE 12/20/2013 SUPRIYA RODRIGUEZ APRN L 250.00 DIABETES II CONTROLLED (UNCOMPLICATED) 12/20/2013 SUPRIYA RODRIGUEZ APRN L 790.29 OTHER ABNORMAL GLUCOSE 12/20/2013 HERNANDEZ DO, DARION K 250.00 DIABETES II CONTROLLED (UNCOMPLICATED) 12/20/2013 HERNANDEZ DO, DARION K 790.29 OTHER ABNORMAL GLUCOSE 12/20/2013 HERNANDEZ DO, DARION K 250.00 DIABETES II CONTROLLED (UNCOMPLICATED) 12/20/2013 HERNANDEZ DO, DARION K 790.29 OTHER ABNORMAL GLUCOSE 12/20/2013 HERNANDEZ DO, DARION K 250.00 DIABETES II CONTROLLED (UNCOMPLICATED) 12/20/2013 HERNANDEZ DO, DARION K 790.29 OTHER ABNORMAL GLUCOSE 12/20/2013 HERNANDEZ DO, DARION K 250.00 DIABETES II CONTROLLED (UNCOMPLICATED) 12/20/2013 HERNANDEZ DO, DARION K 790.29 OTHER ABNORMAL GLUCOSE 12/20/2013 DARRIANCARMINE HORNE APRNIDI A 250.00 DIABETES II CONTROLLED (UNCOMPLICATED) 12/20/2013 CARMINE COLMENARES APRNIDI A 790.29 OTHER ABNORMAL GLUCOSE 04/27/2014 CHERYL JI APRN 278.00 OBESITY UNSPECIFIED 04/27/2014 J CARLOS DOBBS APRN 278.00 OBESITY UNSPECIFIED 04/27/2014 J CARLOS DOBBS APRN 278.00 OBESITY UNSPECIFIED 04/27/2014 SUPRIYA RODRIGUEZ APRN 278.00 OBESITY UNSPECIFIED 04/27/2014 HERNANDEZ DO, DAIRON K 278.00 OBESITY UNSPECIFIED 04/27/2014 HERNANDEZ DO, DARION K 278.00 OBESITY UNSPECIFIED 04/27/2014 HERNANDEZ DO, DARION K 278.00 OBESITY UNSPECIFIED 04/27/2014 HERNANDEZ DO, DARION K 278.00 OBESITY UNSPECIFIED 04/27/2014 SANDY COLMENARES APRN A 278.00 OBESITY 05/06/2014 J CARLOS DOBBS APRN 305.1 current smoker 05/06/2014 J CARLOS DOBBS APRN 305.1 current smoker 05/06/2014 SUPRIYA RODRIGUEZ APRN 305.1 current smoker 05/06/2014 HERNANDEZ DO, DARION K 305.1 current smoker 05/06/2014 HERNANDEZ DO, DARION K 305.1 current smoker 05/06/2014 HERNANDEZ DO, DARION K 305.1 current smoker 05/06/2014 HERNANDEZ DO, DARION K 305.1 current smoker 05/06/2014 SANDY COLMENARES APRN A 305.1 current smoker 07/28/2014 SUPRIYA RODRIGUEZ APRN V65.3 DIETARY SURVEILLANCE AND COUNSELING 07/28/2014 HERNANDEZ DO, DARION K V65.3 DIETARY SURVEILLANCE AND COUNSELING 07/28/2014 HERNANDEZ DO, DARION K V65.3 DIETARY SURVEILLANCE AND COUNSELING 07/28/2014 HERNANDEZ DO, DARION K V65.3 DIETARY SURVEILLANCE AND COUNSELING 07/28/2014 HERNANDEZ DO, DARION K V65.3 DIETARY SURVEILLANCE AND COUNSELING 07/28/2014 DARRIAN HINSON SANDY A V65.3 DIETARY SURVEILLANCE AND COUNSELING 08/03/2014 HERNANDEZ DO, DARION K 272.4 HYPERLIPIDEMIA 08/03/2014 HERNANDEZ DO, DARION K 277.7 METABOLIC SYNDROME 08/03/2014 HERNANDEZ DO, DARION K 623.5 LEUKORRHEA NOT SPECIFIED INFECTIVE 08/03/2014 HERNANDEZ DO, DARION K 272.4 HYPERLIPIDEMIA 08/03/2014 HERNANDEZ DO, DARION K 277.7 METABOLIC SYNDROME 08/03/2014 HERNANDEZ DO, DARION K 623.5 LEUKORRHEA NOT SPECIFIED INFECTIVE 08/03/2014 HERNANDEZ DO, DARION K 272.4 HYPERLIPIDEMIA 08/03/2014 HERNANDEZ DO, DARION K 277.7 METABOLIC SYNDROME 08/03/2014 HERNANDEZ DO, DARION K 623.5 LEUKORRHEA NOT SPECIFIED INFECTIVE 08/03/2014 HERNANDEZ DO, DARION K 272.4 HYPERLIPIDEMIA 08/03/2014 HERNANDEZ DO, DARION K 277.7 METABOLIC SYNDROME 08/03/2014 HERNANDEZ DO, DARION K 623.5 LEUKORRHEA NOT SPECIFIED INFECTIVE 08/03/2014 DARRIAN INSIDE SALES PERSON, SANDY A 272.4 HYPERLIPIDEMIA 08/03/2014 DARRIAN ARRIOLAN, SANDY A 277.7 METABOLIC SYNDROME 08/03/2014 DARRIAN INSIDE SALES PERSON, SANDY A 623.5 LEUKORRHEA NOT SPECIFIED INFECTIVE 11/03/2014 HERNANDEZ DO, DARION K 250.00 DIABETES II CONTROLLED (UNCOMPLICATED) 11/03/2014 HERNANDEZ DO, DARION K 250.00 DIABETES II CONTROLLED (UNCOMPLICATED) 11/03/2014 DARRIAN HINSON SANDY A 250.00 DIABETES II CONTROLLED (UNCOMPLICATED) 12/05/2014 HERNANDEZ DO, DARION K 381.02 ACUTE MUCOID OTITIS MEDIA 12/05/2014 HERNANDEZ DO, DARION K 478.19 OTHER DISEASES OF NASAL CAVITY AND SINUSES 12/05/2014 HERNANDEZ DO, DARION K 784.1 THROAT PAIN 12/05/2014 CARMINE COLMENARES APRNIDI A 381.02 ACUTE MUCOID OTITIS MEDIA 12/05/2014 CARMINE COLMENARES APRNIDI A 478.19 OTHER DISEASES OF NASAL CAVITY AND SINUSES 12/05/2014 DARRIAN HINSON SANDY A 784.1 THROAT PAIN 12/22/2014 DARRIAN HINSON, SANDY A 278.01 OBESITY, MORBID (BMI >40) 12/22/2014 DARRIAN HINSON, SANDY A 625.6 STRESS INCONTINENCE FEMALE 12/22/2014 DARRIAN HINSON, SANDY A 626.4 IRREGULAR MENSTRUAL CYCLE 12/22/2014 DARRIAN HINSON, SANDY A 704.1 HIRSUTISM 12/28/2014 DARRIAN HINSON, SANDY A V26.9 PROCREATIVE MANAGEMENT 12/28/2014 DARRIAN HINSON, SANDY A V65.42 COUNSELING - SMOKING CESSATION 12/28/2014 DARRIAN HINSON, SANDY A V72.31 SEARCH SPECIALIST EXAM, ROUTINE 12/28/2014 DARRIAN HINSON SANDY A V76.2 CERVICAL CANCER SCREENING (PAP SMEAR) 06/11/2015 TASHA ALBARADO DO Ot 305.1 TOBACCO USE DISORDER 06/11/2015 TASHA ALBARADO DO Ot 490 BRONCHITIS NOS 06/11/2015 TASHA ALBARADO DO Ot 786.2 COUGH 01/09/2016 ALVAREZ DO, JUSTINE C Ot N39.3 01/09/2016 ALVAREZ DO, JUSTINE C Ot N91.2 01/16/2016 ALVAREZ DO, JUSTINE C Ot N39.3 01/16/2016 ALVAREZ DO, JUSTINE C Ot N91.2 10/23/2016 ALVAREZ DO, JUSTINE C Ot N39.3 STRESS INCONTINENCE (FEMALE) (MALE) 10/23/2016 ALVAREZ DO, JUSTINE C Ot N91.2 AMENORRHEA, UNSPECIFIED 10/23/2016 ALVAREZ DO, JUSTINE C Ot N39.3 STRESS INCONTINENCE (FEMALE) (MALE) 10/23/2016 ALVAREZ DO, JUSTINE C Ot N91.2 AMENORRHEA, UNSPECIFIED 10/25/2016 SUPRIYA RODRIGUEZ ACID CLEANER Ot R06.02 SHORTNESS OF BREATH 11/20/2016 SUPRIYA RODRIGUEZ ACID CLEANER Ot R06.02 SHORTNESS OF BREATH 12/12/2016 SUPRIYA RODRIGUEZ ACID CLEANER Ot R06.02 SHORTNESS OF BREATH Procedures Code Description Performed By Performed On G0008 FLU ADMINISTRATION (MEDICARE ONLY) 07/23/2013 72114 GLUCOSE FINGER STICK 12/20/2013 15906 A1C (IN-HOUSE) 07026 A1C (IN-HOUSE) 18565 MICRO ALBUMIN-IN HOUSE 04/27/2014 08767 OXIMETRY 2013 95460 THERAPUTIC INJ SQ/IM 05/06/2014 J2930 SOLUMEDROL INJ 55830 ROUTINE VENIPUNCTURE 08/02/2014 16470 URINE DRUG SCREEN (IN-HOUSE) 08/02/2014 73516 CBC 08/02/2014 37432 CMP 08/02/2014 43832 LIPID PANEL 08/02 6496527 GFR CALC (RESULT ONLY) 08/02/2014 40728 TSH 08/02/2014 15500 TRICHOMONAS (IN-HOUSE) 08/03/2014 67396 CULTURE UROGENITAL 08/03/2014 40791 GC/CHLAM PROBE (STATE) 08/03/2014 84889 A1C (RML) 2013 55453 URINE DRUG SCREEN (IN-HOUSE) 09/06/2014 52235 TEST, URINE (IN-HOUSE) 11/03/2014 74373 A1C (IN-HOUSE) Results Encounters ACCT No. Visit Date/Time Discharge Status Pt. Type Provider Facility Loc./Unit Complaint [id number] 12/28/2014 10:14:00 12/28/2014 23: 59:59 CLS Outpatient SANDY COLMENARES APRN [id number] 12/05/2014 11:08:00 12/05/2014 23: 59:59 CLS Outpatient DARION HERNANDEZ DO [id number] 11/03/2014 08:24:00 11/03/2014 23: 59:59 CLS Outpatient DARION HERNANDEZ DO [id number] 09/06/2014 11:05:00 09/06/2014 23: 59:59 CLS Outpatient DARION HERNANDEZ DO [id number] 08/03/2014 14:18:00 08/03/2014 23: 59:59 CLS Outpatient DARION HERNANDEZ DO [id number] 07/28/2014 13:50:00 07/28/2014 23: 59:59 CLS Outpatient SUPRIYA RODRIGUEZ APRN [id number] 05/06/2014 13:57:00 05/06/2014 23: 59:59 CLS Outpatient J CARLOS DOBBS APRN [id number] 05/06/2014 13:57:00 05/06/2014 23: 59:59 CLS Outpatient RINKU HINSON J CARLOS Rowan [id number] 04/27/2014 11:39:00 04/27/2014 23: 59:59 CLS Outpatient CHERYL JI APRN [id number] 12/20/2013 09:42:00 12/20/2013 23: 59:59 CLS Outpatient CHERYL JI APRN Mykel [id number] 12/20/2013 09:42:00 12/20/2013 23: 59:59 CLS Outpatient DARION HERNANDEZ DO [id number] 07/23/2013 10:03:00 07/23/2013 23: 59:59 CLS Outpatient DARION HERNANDEZ DO [id number] 01/18/2013 09:14:00 01/18/2013 23: 59:59 CLS Outpatient [id number] 09/30/2012 13:45:00 09/30/2012 23: 59:59 CLS Outpatient [id number] 10/23/2016 14:07:00 2016 23:59:59 CLS Outpatient SUPRIYA RODRIGUEZ [facility] RT SOB [id number] 12/19/2015 12:24:00 2015 23:59:59 CLS Outpatient JUSTINE ALVAREZ DO [facility] RAD AMENORRHEA, FEMALE STRESS INCONTINENCE [id number] 06/10/2015 23:55:00 2014 01:04:00 DIS Emergency TASHA ALBARADO DO [facility] ER COUGH,CONGESTION
[2017-06-12] MEDS ORDERED: FAMOTIDINE 20MG/2ML IV (PEPCID) IV ONE (11:15)
[2017-06-12] MEDS ORDERED: RT-ALBUTEROL SULF 2.5 MG/3 ML PRE-MIX VIAL INH ONE ×2 (11:15→14:00)
[2017-06-12] MEDS ORDERED: ceFAZolin 2 GM/50 ML NS 50 ML ONE (11:25)
[2017-06-12] MEDS ORDERED: ROCURONIUM 50 MG/5 ML (ZEMURON) VIAL IV ONE (11:28)
[2017-06-12] MEDS ORDERED: SEVOFLURANE (ULTANE) 15 ML INHAL SOLN ONE ×5 (11:28→13:45)
[2017-06-12] MEDS ORDERED: LIDOCAINE PF 2% 5 ML (XYLOCAINE) VIAL ONE (11:28)
[2017-06-12] MEDS ORDERED: fentaNYL INJECTION 100 MCG/2 ML AMP ONE (11:28)
[2017-06-12] MEDS ORDERED: proPOfol 200 MG/20 ML (DIPRIVAN) VIAL IV ONE ×2 (11:28→13:05)
[2017-06-12] MEDS ORDERED: ONDANSETRON 4 MG/2 ML (SDV) Z0FRAN ONE (11:29)
[2017-06-12] MEDS ORDERED: DEXAMETHASONE 10 MG/ML (DECADRON) 1 ML VIAL ONE (11:29)
[2017-06-12] MEDS ORDERED: MIDAZOLAM 2 MG/2 ML (VERSED) VIAL ONE (11:29)
[2017-06-12] MEDS ORDERED: LACTATED RINGERS 500 ML IV ONE ×2 (11:29→13:44)
[2017-06-12] MEDS ORDERED: BUPIVACAINE 0.25% 30 ML (SENSORCAINE) VIAL ONE (11:33)
[2017-06-12] MEDS ORDERED: LIDOCAINE 1% INJ 20 ML (XYLOCAINE) VIAL ONE (11:33)
[2017-06-12] MEDS: LACTATED RINGERS 1,000 ML IV PRN ×2 (11:40→13:30)
[2017-06-12] MEDS ORDERED: ceFAZolin 2 GM/NS 50 ML IV ONE (11:45)
[2017-06-12 11:49] VITALS: BP 118/64
--- NOTE | 2017-06-12 12:01 | Progress Note-Pre Operative ---
Pre-Operative Progress Note H&P Reviewed The H&P was reviewed, patient examined and no changes noted. Date Seen by Provider: Jun 12, 2017 Time Seen by Provider: 11:58 Date H&P Reviewed: Jun 12, 2017 Time H&P Reviewed: 11:58 Pre-Operative Diagnosis: pilonidal cyst MARLO RUVALCABA DO Jun 12, 2017 12:01
[2017-06-12] MEDS ORDERED: RT-ALBUTEROL SULF 2.5 MG/3 ML PRE-MIX VIAL ONE (13:52)
[2017-06-12] MEDS ORDERED: morphine INJ 10 MG/ML 1ML (SYR OR VIAL) IVP PRN (14:00)
--- NOTE | 2017-06-12 14:08 | Progress Note-Post Operative ---
Post-Operative Progess Note Surgeon (s)/Housing Coordinator (s) Surgeon MARLO RUVALCABA DO Housing Coordinator: NA Pre-Operative Diagnosis pilonidal cyst Post-Operative Diagnosis SAME Procedure & Operative Findings Date of Procedure 06/12/17 Procedure Performed/Findings EXCISION PILONIDAL CYST 7X3CM Anesthesia Type GEN Estimated Blood Loss Estimated blood loss (mL): MIN Specimens/Packing Specimens Removed PILONIDAL CYST MARLO RUVALCABA DO Jun 12, 2017 14:08
[2017-06-12] MEDS ORDERED: DOCU-143 PO (14:10)
[2017-06-12] MEDS ORDERED: HYDR-3812 PO (14:10)
--- NOTE | 2017-06-12 14:12 | Discharge Inst-Simple/Standard ---
Discharge Inst-Standard Discharge Medications New, Converted or Re-Newed RX: RX on Chart Patient Instructions/Follow Up Plan of Care/Instructions/FU: 2 WEEKS PEG Activity as Tolerated: No Discharge Diet: Regular Diet Other Inst to Patient Follow up Appt: Make appointment for 2 week. Instructions: No lifting greater than 10 pounds. No strenuous activity. May shower in 24 hours, no tub bath or soaking. Use incentive spirometer at home as directed. No Smoking Skin/Wound Care: May remove bandages in 24 hours. You can replace daily to keep clean and dry. Symptoms to Report: Appetite Changes, Extremity Discoloration, Numbness/Tingling, Swelling Increased , Bleeding Excessive, Eyesight Changes, Pain Increased, Urine Color Change, Constipation(Persistent), Fever over 101 degree F, Pain/Pressure in chest, Urinating Difficulty, Cough Up/Vomit Blood, Heart Beat Irreg/Pounding, Pain/ Pressure in jaw, Vaginal Bleeding Increase, Cramps in feet or legs, Lightheadedness, Pain/Pressure in shoulder, Diarrhea(Persistent), Memory Changes Suddenly, Questions/Concerns, Weight gain consecutive days, Dizziness/ Fainting, Nausea/Vomiting, Shortness of Breath, Weight gain over 2 pounds If questions or concerns contact your physician Or seek help at emergency department. MARLO RUVALCABA DO Jun 12, 2017 14:12
[2017-06-12] MEDS ORDERED: HYDROcodone/APAP 5 MG/325 MG (LORTAB) TAB PO PRN (14:15)
[2017-06-12 14:45] VITALS: BP 131/67
[2017-06-12 15:15] VITALS: BP 121/71
[2017-06-12 15:42] VITALS: BP 132/83
--- NOTE | 2017-06-13 05:30 | OPERATIVE REPORT ---
DATE OF SERVICE: 06/12/2017 PREOPERATIVE DIAGNOSIS: Pilonidal cyst. POSTOPERATIVE DIAGNOSIS: Pilonidal cyst. PROCEDURE: Excision of pilonidal cyst 7 x 3 cm. ANESTHESIA: General. ESTIMATED BLOOD LOSS: Minimal. COMPLICATIONS: None. INDICATIONS: The patient is a 31-year-old female who has had a recurrent pilonidal cyst. She has had issues with it for approximately 15 years. She was explained risks and benefits of the procedure and wished to proceed with procedure. Consent was signed in the chart. DESCRIPTION OF PROCEDURE: The patient was taken to the operating suite, she was prepped and draped in sterile fashion. Surgical pause was performed. A incision was made around the visible pilonidal cyst disease. Total length 7 x 3 cm. Dissection was taken down to the sacral fascia, the subcutaneous tissues were then removed. There was no other evidence of any visible cystic disease. Wound was irrigated with copious amounts of irrigation. The hemostasis had been achieved. The deep subcutaneous tissues were then reapproximated with 3-0 Vicryl and also the subcutaneous tissues were closed in a layered fashion for reapproximation and to avoid any open wound. The skin was then closed using 0 Prolene in a vertical mattress fashion. The area was then washed and dried, sterile bandage was applied. The patient tolerated the procedure well without any complications. She was taken to recovery room in stable condition. Job ID: [id number] DocumentID: [id number] Dictated Date: 06/12/2017 15:32:27 Fish Net Maker Date: 06/13/2017 05:29:44 Dictated By: MARLO RUVALCABA DO
== END 2017-06-12 15:42 | disposition home or self-care (01) ==
LOC: SDC 10:47
PROVIDERS: ATTEND Surgery
DX: L05.91 Pilonidal cyst without abscess (principal); E11.9 Type 2 diabetes mellitus without complications; E78.5 Hyperlipidemia, unspecified; J44.9 Chronic obstructive pulmonary disease, unspecified; F43.10 Post-traumatic stress disorder, unspecified; F20.9 Schizophrenia, unspecified; R32 Unspecified urinary incontinence; F17.210 Nicotine dependence, cigarettes, uncomplicated; E66.01 Morbid (severe) obesity due to excess calories; Z68.42 Body mass index [BMI] 45.0-49.9, adult; Z79.899 Other long term (current) drug therapy
CPT/HCPCS: 82962; 84703; 87081; 94640; 94760

== ENCOUNTER 2017-06-23 08:46 | Emergency (ER) | payer MEDICARE, MEDICAID ==
[~2017-06-23] VITALS: Ht 167.6 cm; Wt 104.3 kg
[~2017-06-23 08:46] MED LIST changes: +DOCU-143 PO; +HYDR-3812 PO
--- OUTSIDE RECORDS SUMMARY | 2017-06-23 08:51 | XMS REPORT ---
Author [facility] [place] Address [address] [place] [address] Care Team Providers Care Diamond Blender Name Role Phone GARCIA, ADAM Unavailable PROBLEMS Type Condition ICD9-CM Code [id number] Code Onset Dates Condition Status SNOMED Code Problem Anxiety F41.9 Active 32960952 Problem Abrasion hip/leg S80.819A Active 677078575 Problem Self-mutilation Z72.89 Active 268508733 Problem Obesity, morbid E66.01 Active 865158271 Problem Pilonidal cyst L05.91 Active 66971801 Problem Tobacco abuse counseling Z71.6 Active 204482501 Problem Influenza A J10.1 Active 300713116 Problem Mild chronic obstructive pulmonary disease J44.9 Active 913920391 Problem Tobacco abuse Z72.0 Active 349295202 Problem Fatty liver K76.0 Active 961850747 Problem Diabetes type 2, controlled E11.9 Active 82037838 Problem Callus of foot L84 Active 662766281 Problem Stress incontinence in female N39.3 Active 65011356 Problem Gastroesophageal reflux disease without esophagitis K21.9 Active 346316904 ALLERGIES Substance Reaction Event Type Date Status Flexeril A-fib Drug Allergy Sep, Active Clozaril Unknown Drug Allergy Sep, Active Aspirin nose bleeds Drug Allergy Sep, Active SOCIAL HISTORY No smoking Hx information available PLAN OF CARE Activity Details Follow Up prn Reason:filling VITAL SIGNS Height 62 in 2016-10-14 Blood pressure systolic 111 mmHg 2016-10-14 Blood pressure diastolic 57 mmHg 2016-10-14 MEDICATIONS Medication Instructions Dosage Frequency Start Date End Date Duration Status Trulicity 0.75 MG/0.5ML Subcutaneous once a week 0.5 ml Active Lamictal 200 MG Orally Once a day 1 tablets 24h Active Vistaril 25 MG Orally 4 times a day 1 capsule as needed 6h Active Metformin HCl 500 MG Orally Twice a day 1 tablet with meals 12h 12 Oct, 2015 Active Latuda 120 MG take 1 tablet by Oral route with food (at least 350 calories ) 1 time per day Oct, Active Atorvastatin Calcium 40 MG Orally Once a day 1 tablet 24h Active Triamcinolone Acetonide 0.1 % Externally Twice a day 1 application to affected area 12h Jan, Active benztropine 1 mg take 1 tablet (1 mg) in am and 2 tabs in pm 12h Jul, Active Oxybutynin Chloride 5 MG Orally Twice a day 2 tablet 12h Sep, Active prazosin 2 mg orally Once a day at bedtime 1 Sep, Active Ativan 0.5 mg take 1 tablet (0.5 mg) by oral route 2 times per day Dec, Active Myrbetriq 50 MG Orally Once a day 1 tablet 24h Active Nicoderm CQ 14 MG/24HR Transdermal Once a day 1 patch to skin-start after you have used to 21 mg daily x 30 days 24h Sep, Oct, 30 days Active Nicoderm CQ 21 MG/24HR Transdermal Once a day 1 patch to skin 24h Sep, Oct, 30 days Active Lancets - 1 time per day ONE TOUCH DELICA LANCETS Dec, Active ProAir HFA 90 mcg/actuation Inhalation every 4-6 hours inhale 2 puffs by Inhalation route every 4-6 hours as needed PRN shortness of breath/cough Apr, Active Omeprazole 20 mg Orally Once a day take 1 capsule (20 mg) by oral route once daily before a meal 24h Jul, Active Latuda 40 mg Orally Once a day at night 1 tablet with food Active Nicoderm CQ 14 MG/24HR Transdermal Once a day 1 patch to skin 24h Apr, Active Haloperidol 5 mg take 1 tablet (5 mg) by oral route 2 times per day PRN Dec, Active Effexor XR 75 MG Orally Once a day 1 capsule with food 24h Active Effexor XR 150 MG take 1 capsule (150 mg) by oral route once daily with food Sep, Active Victoza 1.2 24h Active RESULTS No Results PROCEDURES Procedure Date Ordered Related Diagnosis Body Site RESIN COMPOS - 2 SURFACES POSTERIOR Oct 14, 2016 Billing Notes on claim Oct 14, 2016 IMMUNIZATIONS No Known Immunizations
--- NOTE | 2017-06-23 10:01 | ED Integumentary General ---
General Chief Complaint: Skin/Wound Problems Stated Complaint: SURGICAL INCISION POSS INFECTED Nursing Triage Note: Pt had surgery for pilonidal cyst on 07-13. Reports increased swelling and pain to surgery site today. Source: patient Exam Limitations: no limitations History of Present Illness Time seen by provider: 09:40 Initial Comments Here with report of concerns of infection to the incision where she had pilonidal cyst removed on 06/12/17. She does have a little bit of increased pain and clear drainage. Denies fever or chills. Timing/Duration: yesterday Severity: mild, moderate Associated Symptoms: No fever Allergies and Home Medications Allergies Coded Allergies: aspirin (Verified Allergy, Unknown, 01/18/06) clozapine (Verified Allergy, Unknown, tachycardia and high fever, 06/11/17) cyclobenzaprine (Verified Allergy, Unknown, tachycardia and high fever, ) Uncoded Allergies: SEAFOOD (Allergy, Unknown, 01/18/06) Home Medications Albuterol Sulfate 1 Puff Puff, 2 PUFF IH BID, (Reported) 1 PUFF = 90 MCG Atorvastatin Calcium 40 Mg Tablet, 40 MG PO DAILY, (Reported) Benztropine Mesylate 1 Mg Tablet, 1 MG PO BID, (Reported) Docusate Sodium 100 Mg Capsule, 100 MG PO BID, #30 Prescribed by: MARLO RUVALCABA on 06/12/17 1410 Dulaglutide 0.75 Mg/0.5 Ml Pen.injctr, 0.75 MG SQ WEEK, (Reported) Haloperidol 5 Mg Tablet, 5 MG PO DAILY PRN for ANXIETY, (Reported) Hydrocodone/Acetaminophen 1 Each Tablet, 1 TAB PO Q4H PRN, #30 Ref 0 Prescribed by: MARLO RUVALCABA on 06/12/17 1410 Lamotrigine 200 Mg Tab, 200 MG PO HS, (Reported) Lurasidone HCl 120 Mg Tablet, 120 MG PO HS, (Reported) Metformin HCl 500 Mg Tablet, 500 MG PO BID, (Reported) Prazosin HCl 2 Mg Capsule, 4 MG PO HS, (Reported) take 2 (2mg) tab Umeclidinium [place] 62.5 Mcg Blst.w.dev, 62.5 MCG IH DAILY, (Reported) Venlafaxine HCl 150 Mg Tab.er.24, 150 MG PO DAILY, (Reported) take with 37.5mg tab Venlafaxine HCl 37.5 Mg Tab.er.24, 37.5 MG PO DAILY, (Reported) take with 150mg tab Constitutional: see HPI, No chills, No fever Respiratory: no symptoms reported Cardiovascular: no symptoms reported Gastrointestinal: no symptoms reported Skin: see HPI, lesions, other (drainage as discussed.) Psychiatric/Neurological: No Symptoms Reported Past Ofjgpse-Qspcrj-Oxwzll Hx Patient Social History Alcohol Use: Denies Use Recreational Drug Use: No Drug of Choice: marijauna, meth, heroine Type Used: Cigarettes Recent Foreign Travel: No Contact w/Someone Who Travel: No Recent Infectious Disease Expo: No Recent Hopitalizations: No Immunizations Up To Date Tetanus Booster (TDap): Unknown Seasonal Allergies Seasonal Allergies: Yes (mild) Surgeries History of Surgeries: Yes (pilonidal cyst removal) Respiratory History of Respiratory Disorde: Yes Respiratory Disorders: COPD Cardiovascular History of Cardiac Disorders: Yes Cardiac Disorders: Hypertension Reproductive System Hx Reproductive Disorders: No Genitourinary History of Genitourinary Disor: No Gastrointestinal History of Gastrointestinal Di: No Musculoskeletal History of Musculoskeletal Dis: No Endocrine History of Endocrine Disorders: Yes Endocrine Disorders: Diabetes, Non-Insulin dep Psychosocial Behavioral Health Disorders: PTSD, Bipolar, Personality Disorder, Schizophrenia Blood Transfusions Adverse Reaction to a Blood Tr: No Physical Exam Vital Signs Vital Sign - Last 12Hours 06/23/17 09:26 Temp 97.5 Pulse 70 Resp 16 B/P (MAP) 150/82 Pulse Ox 98 O2 Delivery Room Air Capillary Refill : Less Than 3 Seconds General Appearance: WD/WN, no apparent distress Neck: full range of motion, supple Cardiovascular: regular rate, rhythm, no murmur Respiratory: lungs clear, normal breath sounds Gastrointestinal: non tender, soft Back: normal inspection, no CVA tenderness, no vertebral tenderness Neurologic/Psychiatric: alert, oriented x 3 Skin: warm/dry Skin Problem Character: drainage, erythema, other (8 cm incision that appears to be healing. Sutured closed. There is some surrounding induration without significant erythema. There does appear to be some serous drainage from the wound.) Progress/Results/Core Measures Results/Orders Vital Signs/I&O Vital Sign - Last 12Hours 06/23/17 09:26 Temp 97.5 Pulse 70 Resp 16 B/P (MAP) 150/82 Pulse Ox 98 O2 Delivery Room Air Blood Pressure Mean: 104 Progress Note : Progress Note Seen and evaluated. Wound was redressed and covered. We will initiate antibiotic Bactrim and Flagyl as well as prescribe additional pain medicine. She is to follow-up with Dr. Ruvalcaba Friday as scheduled. Discharged home with return precautions. Patient verbalize understanding instructions and agreement with plan. Departure Impression Impression: Primary Impression: Postoperative wound infection Qualified Codes: T81.4XXA - Infection following a procedure, initial encounter Disposition: HOME, SELF-CARE Condition: Improved Departure-Patient Inst. Decision time for Depature: 10:03 Referrals: DARION HERNANDEZ DO (PCP) Primary Care Physician SUPRIYA RODRIGUEZ (Family) Primary Care Physician Patient Instructions: Cellulitis (Skin Infection), Adult (DC), Wound Care (DC) Add. Discharge Instructions: All discharge instructions reviewed with patient and/or family. Voiced understanding. Take medications as directed. Keep appointment with Dr. Ruvalcaba once is scheduled. Return for worse pain, swelling, fever, vomiting or weakness or other concerns as needed. Keep wound clean and replace dressings as needed. Scripts Sulfamethoxazole/Trimethoprim (Sulfamethoxazole-Tmp Ds Tablet) 1 Each Tablet 1 EACH PO BID, #14 TAB 0 Refills Prov: IRMA MERLOS MD 06/23/17 Metronidazole (Metronidazole) 500 Mg Tablet 500 MG PO BID, #14 TAB 0 Refills Prov: IRMA MERLOS MD 06/23/17 Hydrocodone/Acetaminophen (Hydrocodon -Acetaminophen 5-325) 1 Each Tablet 1 EACH PO Q4H Y for PAIN-MODERATE, #15 TAB 0 Refills Prov: IRMA MERLOS MD 06/23/17 Copy Copies To 1: MARLO RUVALCABA TIMOTHY D MD Jun 23, 2017 10:01
[2017-06-23] MEDS ORDERED: SULF-222 PO (10:06)
[2017-06-23] MEDS ORDERED: METR500T21 PO (10:06)
[2017-06-23] MEDS ORDERED: HYDR-3812 PO (10:06)
[2017-06-23 10:15] VITALS: BP 142/70
== END 2017-06-23 10:15 | disposition home or self-care (01) ==
LOC: EDUNIT# 08:46 → ER 08:47
DX: T81.4XXA Infection following a procedure, initial encounter (principal); E11.9 Type 2 diabetes mellitus without complications; F43.10 Post-traumatic stress disorder, unspecified; F31.9 Bipolar disorder, unspecified; F20.9 Schizophrenia, unspecified; I10 Essential (primary) hypertension; J44.9 Chronic obstructive pulmonary disease, unspecified; F15.10 Other stimulant abuse, uncomplicated; F11.10 Opioid abuse, uncomplicated; Z79.84 Long term (current) use of oral hypoglycemic drugs
CPT/HCPCS: 99282

== ENCOUNTER 2020-07-27 15:18 | Emergency (ER) | payer MEDICARE, MEDICAID ==
[~2020-07-27] VITALS: Ht 154.9 cm; Wt 90.7 kg
[~2020-07-27 15:18] MED LIST changes: +ACHD5005 PO; -HYDR-3812 PO; +METF-397 PO; +METF-399; -METF1000; -METF500T4 PO; +METR-145 PO; +OXYB5TAB13; -OXYB5TAB9; +SULF-222 PO
--- NOTE | 2020-07-27 15:33 | ED General ---
General Stated Complaint: ABD PAIN & PRESSURE/18 WEEKS /HEADACHE Source of Information: Patient Exam Limitations: No Limitations History of Present Illness Date Seen by Provider: Jul 27, 2020 Time Seen by Provider: 15:28 Initial Comments To ER with suprapubic abdominal pressure, intermittent "leaking fluid". This is clear. Has also been having a headache. . About 18 weeks' gestation falls with Dr. DEE. Symptoms present for 4 days. Smokes 1.5 pack of cigarettes per day. Timing/Duration: 3-4 Days Severity: Moderate Allergies and Home Medications Allergies Coded Allergies: aspirin (Verified Allergy, Unknown, 01/18/06) clozapine (Verified Allergy, Unknown, tachycardia and high fever, 06/11/17) cyclobenzaprine (Verified Allergy, Unknown, tachycardia and high fever, 06/11/17) Uncoded Allergies: SEAFOOD (Allergy, Unknown, 01/18/06) Home Medications Albuterol Sulfate 1 Puff Puff, 2 PUFF IH BID, (Reported) 1 PUFF = 90 MCG Atorvastatin Calcium 40 Mg Tablet, 40 MG PO DAILY, (Reported) Benztropine Mesylate 1 Mg Tablet, 1 MG PO BID, (Reported) Docusate Sodium 100 Mg Capsule, 100 MG PO BID Prescribed by: MARLO RUVALCABA on 06/12/17 141 Dulaglutide 0.75 Mg/0.5 Ml Pen.injctr, 0.75 MG SQ WEEK, (Reported) Haloperidol 5 Mg Tablet, 5 MG PO DAILY PRN for ANXIETY, (Reported) Hydrocodone Bit/Acetaminophen 1 Each Tablet, 1 TAB PO Q4H PRN Prescribed by: MARLO RUVALCABA on 06/12/17 1410 Hydrocodone Bit/Acetaminophen 1 Each Tablet, 1 EACH PO Q4H PRN for PAIN-MODERATE Prescribed by: IRMA MERLOS on 06/23/17 1006 Lamotrigine 200 Mg Tab, 200 MG PO HS, (Reported) Lurasidone HCl 120 Mg Tablet, 120 MG PO HS, (Reported) Metformin HCl 500 Mg Tablet, 500 MG PO BID, (Reported) Metronidazole 500 Mg Tablet, 500 MG PO BID Prescribed by: IRMA MERLOS on 06/23/17 1006 Prazosin HCl 2 Mg Capsule, 4 MG PO HS, (Reported) take 2 (2mg) tab Sulfamethoxazole/Trimethoprim 1 Each Tablet, 1 EACH PO BID Prescribed by: IRMA MERLOS on 06/23/17 1006 Umeclidinium [place] 62.5 Mcg Blst.w.dev, 62.5 MCG IH DAILY, (Reported) Venlafaxine HCl 150 Mg Tab.er.24, 150 MG PO DAILY, (Reported) take with 37.5mg tab Venlafaxine HCl 37.5 Mg Tab.er.24, 37.5 MG PO DAILY, (Reported) take with 150mg tab Patient Home Medication List Home Medication List Reviewed: Yes Review of Systems Review of Systems Constitutional: see HPI EENTM: see HPI Respiratory: no symptoms reported Cardiovascular: no symptoms reported Genitourinary: see HPI Musculoskeletal: no symptoms reported Skin: no symptoms reported Psychiatric/Neurological: No Symptoms Reported Hematologic/Lymphatic: No Symptoms Reported Past Zmjfcbw-Ormhet-Bbgjno Hx Patient Social History Drug of Choice: marijauna, meth, heroine Type Used: Cigarettes Recent Foreign Travel: No Contact w/Someone Who Travel: No Recent Hopitalizations: No Immunizations Up To Date Tetanus Booster (TDap): Unknown Seasonal Allergies Seasonal Allergies: Yes (mild) Past Medical History Surgeries: Yes (pilonidal cyst removal) Respiratory: Yes COPD Cardiac: Yes Hypertension Reproductive Disorders: No Genitourinary: No Gastrointestinal: No Musculoskeletal: No Endocrine: Yes Diabetes, Non-Insulin dep PTSD, Bipolar, Personality Disorder, Schizophrenia Adverse Reaction/Blood Tranf: No Physical Exam Vital Signs Vital Signs - First Documented 07/27/20 15:20 Temp 37.2 Pulse 88 Resp 18 B/P (MAP) 137/79 (98) Pulse Ox 98 O2 Delivery Room Air Capillary Refill : Height, Weight, BMI Height: 5'6.00" Weight: 230lbs. 0.0oz. [id number]; 47.2 BMI Method:Stated General Appearance: No Apparent Distress, WD/WN, Obese Eyes: Bilateral Eye Normal Inspection, Bilateral Eye PERRL, Bilateral Eye EOMI Respiratory: No Accessory Muscle Use, No Respiratory Distress Cardiovascular: Regular Rate, Rhythm, Normal Peripheral Pulses Gastrointestinal: Normal Bowel Sounds, Non Tender, Soft Extremity: Normal Capillary Refill, Normal Inspection Neurologic/Psychiatric: Alert, Oriented x3 Skin: Normal Color, Warm/Dry Progress/Results/Core Measures Suspected Sepsis SIRS Temperature: Pulse: Respiratory Rate: Laboratory Tests 07/27/20 15:45: White Blood Count 7.3 Blood Pressure / Mean: Laboratory Tests 07/27/20 15:45: Creatinine 0.72, Platelet Count 194, Total Bilirubin 0.1 Results/Orders Lab Results Laboratory Tests Test 07/27/20 15:26 07/27/20 15:45 Range/Units Urine Color YELLOW Urine Clarity CLEAR Urine pH 6.5 5-9 Urine Specific [place] <=1.005 1.016-1.022 Urine Protein NEGATIVE NEGATIVE Urine Glucose (UA) NEGATIVE NEGATIVE Urine Ketones NEGATIVE NEGATIVE Urine Nitrite NEGATIVE NEGATIVE Urine Bilirubin NEGATIVE NEGATIVE Urine Urobilinogen 0.2 < = 1.0 MG/DL Urine Leukocyte Esterase NEGATIVE NEGATIVE Urine RBC (Auto) NEGATIVE NEGATIVE Urine RBC NONE /HPF Urine WBC NONE /HPF Urine Squamous Epithelial Cells 0-2 /HPF Urine Crystals NONE /LPF Urine Bacteria NEGATIVE /HPF Urine Casts NONE /LPF Urine Mucus NEGATIVE /LPF Urine Culture Indicated NO Urine Opiates Screen NEGATIVE NEGATIVE Urine Oxycodone Screen NEGATIVE NEGATIVE Urine Methadone Screen NEGATIVE NEGATIVE Urine Propoxyphene Screen NEGATIVE NEGATIVE Urine Barbiturates Screen NEGATIVE NEGATIVE Ur Tricyclic Antidepressants Screen NEGATIVE NEGATIVE Urine Phencyclidine Screen NEGATIVE NEGATIVE Urine Amphetamines Screen NEGATIVE NEGATIVE Urine Methamphetamines Screen NEGATIVE NEGATIVE Urine Benzodiazepines Screen NEGATIVE NEGATIVE Urine Cocaine Screen NEGATIVE NEGATIVE Urine Cannabinoids Screen NEGATIVE NEGATIVE White Blood Count 7.3 4.3-11.0 10^3/uL Red Blood Count 4.18 3.80-5.11 10^6/uL Hemoglobin 11.7 11.5-16.0 g/dL Hematocrit 36 35-52 % Mean Corpuscular Volume 86 80-99 fL Mean Corpuscular Hemoglobin 28 25-34 pg Mean Corpuscular Hemoglobin Concent 33 32-36 g/dL Red Cell Distribution Width 13.8 10.0-14.5 % Platelet Count 194 130-400 10^3/uL Mean Platelet Volume 9.9 9.0-12.2 fL Immature Granulocyte % (Auto) 1 % Neutrophils (%) (Auto) 73 42-75 % Lymphocytes (%) (Auto) 18 12-44 % Monocytes (%) (Auto) 7 0-12 % Eosinophils (%) (Auto) 2 0-10 % Basophils (%) (Auto) 0 0-10 % Neutrophils # (Auto) 5.3 1.8-7.8 10^3/uL Lymphocytes # (Auto) 1.3 1.0-4.0 10^3/uL Monocytes # (Auto) 0.5 0.0-1.0 10^3/uL Eosinophils # (Auto) 0.1 0.0-0.3 10^3/uL Basophils # (Auto) 0.0 0.0-0.1 10^3/uL Immature Granulocyte # (Auto) 0.1 0.0-0.1 10^3/uL Sodium Level 140 135-145 MMOL/L Potassium Level 3.6 3.6-5.0 MMOL/L Chloride Level 111 H 98-107 MMOL/L Carbon Dioxide Level 19 L 21-32 MMOL/L Anion Gap 10 5-14 MMOL/L Blood Urea Nitrogen 4 L 7-18 MG/DL Creatinine 0.72 0.60-1.30 MG/DL Estimat Glomerular Filtration Rate > 60 BUN/Creatinine Ratio 6 Glucose Level 90 70-105 MG/DL Calcium Level 8.7 8.5-10.1 MG/DL Corrected Calcium 9.1 8.5-10.1 MG/DL Total Bilirubin 0.1 0.1-1.0 MG/DL Aspartate Amino Transf (AST/SGOT) 13 5-34 U/L Alanine Aminotransferase (ALT/SGPT) 15 0-55 U/L Alkaline Phosphatase 47 40-136 U/L Total Protein 6.3 L 6.4-8.2 GM/DL Albumin 3.5 3.2-4.5 GM/DL Human Chorionic Gonadotropin, Quant 57340 H <5 MIU/ML My Orders Orders - DENISE FREDERICK APRN Abo Rh Type (07/27/20 15:23) Cbc With Automated Diff (07/27/20 15:23) Comprehensive Metabolic Panel (07/27/20 15:23) Hcg,Quantitative (07/27/20 15:23) Amnio Test (07/27/20 15:30) Ua Culture If Indicated (07/27/20 15:33) Drug Screen Stat (Urine) (07/27/20 15:33) Vital Signs/I&O 07/27/20 07/27/20 15:20 17:07 Temp 37.2 37.1 Pulse 88 80 Resp 18 15 B/P (MAP) 137/79 (98) 139/80 Pulse Ox 98 98 O2 Delivery Room Air Room Air Capillary Refill : Departure Communication (Admissions) nitrazine test negative. No vaginal bleeding. Positive motin on bedside ultrasound, dopplered heart tones at 145. Impression Primary Impression: Abdominal cramping affecting Disposition: HOME, SELF-CARE Condition: Stable Departure-Patient Inst. Decision time for Depature: 16:44 Referrals: DARION HERNANDEZ DO (PCP) Primary Care Physician SUPRIYA RODRIGUEZ (Family) Primary Care Physician Patient Instructions: NO INSTRUCTIONS GIVEN Add. Discharge Instructions: 1. Call Dr. Dee tomorrow for follow-up. Return to ER for any concerns. DENISE FREDERICK APRN Jul 27, 2020 15:32
[2020-07-27 15:39] LABS: BILIRUBIN,URINE NEGATIVE (NEGATIVE); CLARITY,URINE CLEAR; COLOR,URINE YELLOW; GLUCOSE, URINE (UA) NEGATIVE (NEGATIVE); KETONES,URINE NEGATIVE (NEGATIVE); LEUKOCYTE ESTERASE ,URINE NEGATIVE (NEGATIVE); NITRITE,URINE NEGATIVE (NEGATIVE); PH,URINE 6.5 (5-9); PROTEIN,URINE NEGATIVE (NEGATIVE)
[2020-07-27 15:47] LABS: BACTERIA,URINE NEGATIVE /HPF; SQUAMOUS EPITHELIAL CELL,UR 0-2 /HPF
[2020-07-27 15:54] LABS: AMPHETAMINE SCREEN, URINE NEGATIVE (NEGATIVE); BARBITURATE SCREEN URINE NEGATIVE (NEGATIVE); BENZODIAZEPINES SCREEN URINE NEGATIVE (NEGATIVE); CANNABINOID SCREEN, URINE NEGATIVE (NEGATIVE); COCAINE SCREEN URINE NEGATIVE (NEGATIVE); METHADONE STAT NEGATIVE (NEGATIVE); METHAMPHETAMINE SCREEN URINE S NEGATIVE (NEGATIVE); OPIATE SCREEN URINE NEGATIVE (NEGATIVE); OXYCODONE STAT NEGATIVE (NEGATIVE); PROPOXYPHENE STAT NEGATIVE (NEGATIVE); TRICYCLIC ANTIDEPRESSANTS SCRE NEGATIVE (NEGATIVE)
[2020-07-27 15:57] LABS: BASOPHILS % (AUTO) 0 % (0-10); EOSINOPHILS # (AUTO) 0.1 10^3/uL (0.0-0.3); EOSINOPHILS % (AUTO) 2 % (0-10); HEMATOCRIT 36 % (35-52); HEMOGLOBIN 11.7 g/dL (11.5-16.0); LYMPHOCYTES # (AUTO) 1.3 10^3/uL (1.0-4.0); LYMPHOCYTES % (AUTO) 18 % (12-44); MEAN CORPUSCULAR HEMOGLOBIN 28 pg (25-34); MEAN CORPUSCULAR HGB CONC 33 g/dL (32-36); MEAN CORPUSCULAR VOLUME 86 fL (80-99); MEAN PLATELET VOLUME 9.9 fL (9.0-12.2); MONOCYTES # (AUTO) 0.5 10^3/uL (0.0-1.0); MONOCYTES % (AUTO) 7 % (0-12); NEUTROPHILS # (AUTO) 5.3 10^3/uL (1.8-7.8); NEUTROPHILS % (AUTO) 73 % (42-75); PLATELET COUNT 194 10^3/uL (130-400); WHITE BLOOD COUNT 7.3 10^3/uL (4.3-11.0)
[2020-07-27 16:07] LABS: ALBUMIN 3.5 GM/DL (3.2-4.5); CHLORIDE 111 MMOL/L (98-107); POTASSIUM 3.6 MMOL/L (3.6-5.0); SODIUM 140 MMOL/L (135-145)
[2020-07-27 16:08] LABS: CALCIUM 8.7 MG/DL (8.5-10.1)
[2020-07-27 16:10] LABS: GLUCOSE 90 MG/DL (70-105); TOTAL PROTEIN 6.3 GM/DL (6.4-8.2)
[2020-07-27 16:11] LABS: CARBON DIOXIDE 19 MMOL/L (21-32)
[2020-07-27 16:12] LABS: BILIRUBIN,TOTAL 0.1 MG/DL (0.1-1.0)
[2020-07-27 16:13] LABS: ALKALINE PHOSPHATASE 47 U/L (40-136); CREATININE SERUM 0.72 MG/DL (0.60-1.30); GFR ESTIMATED > 60
[2020-07-27 16:14] LABS: BUN/CREATININE RATIO 6
[2020-07-27 16:16] LABS: ALANINE AMINOTRANSFERASE 15 U/L (0-55)
[2020-07-27 17:07] VITALS: BP 139/80
== END 2020-07-27 17:09 | disposition home or self-care (01) ==
LOC: EDUNIT# 15:18 → ER 15:22
DX: O26.892 Other specified pregnancy related conditions, second trimester (principal); R10.9 Unspecified abdominal pain; O16.2 Unspecified maternal hypertension, second trimester; O99.512 Diseases of the respiratory system complicating pregnancy, second trimester; J44.9 Chronic obstructive pulmonary disease, unspecified; O24.912 Unspecified diabetes mellitus in pregnancy, second trimester; O99.342 Other mental disorders complicating pregnancy, second trimester; F31.9 Bipolar disorder, unspecified; F20.9 Schizophrenia, unspecified; O99.332 Smoking (tobacco) complicating pregnancy, second trimester; F17.210 Nicotine dependence, cigarettes, uncomplicated; Z88.6 Allergy status to analgesic agent; Z88.8 Allergy status to other drugs, medicaments and biological substances; Z79.84 Long term (current) use of oral hypoglycemic drugs; Z3A.18 18 weeks gestation of pregnancy
CPT/HCPCS: 36415; 80053; 80306; 81000; 84702; 85025; 86900; 86901

== ENCOUNTER → 2020-08-25 | Outpatient (CLI) | payer MEDICARE, MEDICAID ==
--- NOTE | 2020-08-25 11:11 | Diagnostic Imaging Report ---
INDICATION: survey. TECHNIQUE: Multiple real-time grayscale images were obtained over the gravid uterus. COMPARISON: None FINDINGS: There is a single live fetus in a breech presentation. heart rate was recorded at 153 bpm. Placenta is anterior. Amniotic fluid index is normal. Cervical length is 3.6 cm. Kidneys, bladder and stomach are unremarkable. brain is unremarkable. Four-chamber heart view is somewhat limited due to position. There is a three-vessel cord with normal insertion. spine is unremarkable. Biometrical measurements are as follows: Biparietal 5.4 cm, age 22 weeks 4 days. Head circumference 20.6 cm, age 22 weeks 6 days. Abdominal circumference 17.9 cm, age 22 weeks 6 days. Femur length 3.7 cm, age 21 weeks 6 days. Sonographic estimate age: 22 weeks 4 days. Sonographic estimated date of delivery: 12/25/2020. Estimated Weight: 497 gm (+/- 73 gm). LMP percentile: 16%. heart rate: 153 beats per minute. number: 1 of 1. IMPRESSION: Single live IUP at 22 weeks 4 days gestational age. Estimated date of confinement sonographically is 12/25/2020. survey is unremarkable, although four-chamber heart view is somewhat limited due to position. Dictated by: Dictated on workstation # [id number]
== END ==
LOC: RAD 10:00
PROVIDERS: ATTEND Obstetrics & Gynecology
DX: Z34.92 Encounter for supervision of normal pregnancy, unspecified, second trimester (principal); Z3A.22 22 weeks gestation of pregnancy
CPT/HCPCS: 76805

== ENCOUNTER 2020-12-13 01:16 | Inpatient (IN) | payer MEDICARE, MEDICAID ==
[~2020-12-13] VITALS: Ht 154.9 cm; Wt 106.1 kg
[2020-12-13] MEDS ORDERED: NS IV 1000 ML 1,000 ML ONE (19:35)
[2020-12-13 19:55] VITALS: BP 137/71
[2020-12-13] MEDS ORDERED: MISOPROSTOL 100 MCG (CYTOTEC) TAB PO NR (20:00)
[2020-12-13] MEDS ORDERED: TERBUTALINE INJ 1 MG/ML (BRETHINE) AMP SC PRN (20:00)
[2020-12-13] MEDS ORDERED: NS IV 1000 ML 1,000 ML IV SCH (20:00)
[2020-12-13 20:14] LABS: BASOPHILS % (AUTO) 0 % (0-10); EOSINOPHILS # (AUTO) 0.2 10^3/uL (0.0-0.3); EOSINOPHILS % (AUTO) 2 % (0-10); HEMATOCRIT 38 % (35-52); HEMOGLOBIN 12.2 g/dL (11.5-16.0); LYMPHOCYTES # (AUTO) 1.5 10^3/uL (1.0-4.0); LYMPHOCYTES % (AUTO) 15 % (12-44); MEAN CORPUSCULAR HEMOGLOBIN 27 pg (25-34); MEAN CORPUSCULAR HGB CONC 32 g/dL (32-36); MEAN CORPUSCULAR VOLUME 84 fL (80-99); MEAN PLATELET VOLUME 10.4 fL (9.0-12.2); MONOCYTES # (AUTO) 0.6 10^3/uL (0.0-1.0); MONOCYTES % (AUTO) 6 % (0-12); NEUTROPHILS # (AUTO) 7.8 10^3/uL (1.8-7.8); NEUTROPHILS % (AUTO) 77 % (42-75); PLATELET COUNT 306 10^3/uL (130-400); WHITE BLOOD COUNT 10.1 10^3/uL (4.3-11.0)
[2020-12-13 20:22] LABS: BILIRUBIN,URINE NEGATIVE (NEGATIVE); CLARITY,URINE CLEAR; COLOR,URINE DARK YELLOW; GLUCOSE, URINE (UA) NEGATIVE (NEGATIVE); KETONES,URINE NEGATIVE (NEGATIVE); LEUKOCYTE ESTERASE ,URINE NEGATIVE (NEGATIVE); NITRITE,URINE NEGATIVE (NEGATIVE); PH,URINE 6.5 (5-9); PROTEIN,URINE NEGATIVE (NEGATIVE)
[2020-12-13 20:27] VITALS: BP 141/80
[2020-12-13 20:45] LABS: BACTERIA,URINE LARGE /HPF; WBC,URINE 0-2 /HPF
[2020-12-13] MEDS: NS IV 1000 ML 1,000 ML IV SCH (20:53)
[2020-12-13 21:27] VITALS: BP 135/76
[2020-12-13] MEDS: CATHETER FLUSH 10 ML SYR IV SCH (21:37)
[2020-12-13 22:27] VITALS: BP 135/62
[2020-12-13 23:27] VITALS: BP 140/74
[2020-12-13] MEDS ORDERED: QUET100T PO (23:57)
[2020-12-13] MEDS ORDERED: OMEP20TA7 PO (23:57)
[2020-12-14] VITALS (19 sets, daily range): BP systolic 111–176; BP diastolic 60–97
[2020-12-14] MEDS: MISOPROSTOL 100 MCG (CYTOTEC) TAB PO SCH ×3 (00:27→08:49)
[2020-12-14] MEDS: NS IV 1000 ML 1,000 ML IV SCH ×2 (04:39→12:46)
[2020-12-14] MEDS: CATHETER FLUSH 10 ML SYR IV SCH (06:14)
--- NOTE | 2020-12-14 08:03 | History & Physical-OB ---
OB - Chief Complaint & HPI Date/Time Date of Admission: Date of Admission: Dec 13, 2020 at 19:05 Date seen by a Provider: Dec 14, 2020 Time Seen by a Provider: 07:45 Chief Complaint/History OB-Reason for Admission/Chief: Induction of Labor Hx : 1 Hx Para: 0 Expected Date of Delivery: Dec 22, 2020 Gestational Age in Weeks: 38 Gestational Age in Days: 5 Admission Nurse Assessment Rev: Yes History of Labs A pos Antibody neg RI RPR NR HIV NR HBsAg NR GC neg GBS neg Allergies and Home Medications Allergies Coded Allergies: aspirin (Verified Allergy, Unknown, 01/18/06) clozapine (Verified Allergy, Unknown, tachycardia and high fever, 06/11/17) cyclobenzaprine (Verified Allergy, Unknown, tachycardia and high fever, 06/11/17) shellfish derived (Unverified Allergy, Unknown, Hives, 12/14/20) Uncoded Allergies: SEAFOOD (Allergy, Unknown, 01/18/06) Home Medications Albuterol Sulfate 1 Puff Puff, 2 PUFF IH BID, (Reported) 1 PUFF = 90 MCG Metformin HCl 500 Mg Tablet, 500 MG PO BID, (Reported) Omeprazole 20 Mg Tablet.dr, 20 MG PO DAILY, (Reported) Quetiapine Fumarate 100 Mg Tablet, 100 MG PO DAILY, (Reported) Patient Home Medication List Home Medication List Reviewed: Yes OB - History Hx of Present Care: Yes Ultrasounds: Other (Questionable GI finding/non specific by MFM/ on 3rd trimester US) Obstetrical Complications: Gestational Diabetes (GDMA2) Medical Complications: Other (Bipolar/Schitzoeffective) Delivery History Hx Blood Disorders: No Adverse Rxn to Tranfusion: No Patient Past Medical History Schizoeffective disorder Social History/Family History 2nd Hand Smoke Exposure: Yes Immunizations Tetanus Booster (TDap): Unknown Date of Influenza Vaccine: Aug 23, 2020 OB - Admission Exam Physical Exam Vitals: Vital Signs 12/14/20 12/14/20 03:28 06:37 Temp 37.3 Pulse 75 Resp 18 B/P (MAP) 141/73 (95) Pulse Ox 98 O2 Delivery Room Air HEENT: NCAT Heart: Rhythm Normal Lungs: Clear Abdomen: Gravid Extremities: Normal Reflexes: Normal Cervical Dilatation: Fingertip Effacement: 50% Station: Ballotable Membranes: Intact Heart Rate: 130's Accelerations: Accelerations Present Decelerations: No Decelerations Short Term Variability: Present Residential Variability: Average (6-25) Contractions on Admission: 6-10 Minutes Apart Intensity: Mild [place] Scoring Tool (Modified) Dilation (cm): 0/Closed (0) Effacement (%): 51-79% (2) Descent/Station: -3 (0) Cervix Consistency: Soft (2) Cervix Position: Anterior (2) Labs Laboratory Tests Test 12/13/20 19:45 12/13/20 21:20 Range/Units White Blood Count 10.1 4.3-11.0 10^3/uL Red Blood Count 4.49 3.80-5.11 10^6/uL Hemoglobin 12.2 11.5-16.0 g/dL Hematocrit 38 35-52 % Mean Corpuscular Volume 84 80-99 fL Mean Corpuscular Hemoglobin 27 25-34 pg Mean Corpuscular Hemoglobin Concent 32 32-36 g/dL Red Cell Distribution Width 13.2 10.0-14.5 % Platelet Count 306 130-400 10^3/uL Mean Platelet Volume 10.4 9.0-12.2 fL Immature Granulocyte % (Auto) 1 % Neutrophils (%) (Auto) 77 H 42-75 % Lymphocytes (%) (Auto) 15 12-44 % Monocytes (%) (Auto) 6 0-12 % Eosinophils (%) (Auto) 2 0-10 % Basophils (%) (Auto) 0 0-10 % Neutrophils # (Auto) 7.8 1.8-7.8 10^3/uL Lymphocytes # (Auto) 1.5 1.0-4.0 10^3/uL Monocytes # (Auto) 0.6 0.0-1.0 10^3/uL Eosinophils # (Auto) 0.2 0.0-0.3 10^3/uL Basophils # (Auto) 0.0 0.0-0.1 10^3/uL Immature Granulocyte # (Auto) 0.1 0.0-0.1 10^3/uL Urine Color DARK YELLOW Urine Clarity CLEAR Urine pH 6.5 5-9 Urine Specific [place] 1.025 H 1.016-1.022 Urine Protein NEGATIVE NEGATIVE Urine Glucose (UA) NEGATIVE NEGATIVE Urine Ketones NEGATIVE NEGATIVE Urine Nitrite NEGATIVE NEGATIVE Urine Bilirubin NEGATIVE NEGATIVE Urine Urobilinogen 0.2 < = 1.0 MG/DL Urine Leukocyte Esterase NEGATIVE NEGATIVE Urine RBC (Auto) NEGATIVE NEGATIVE Urine RBC NONE /HPF Urine WBC 0-2 /HPF Urine Squamous Epithelial Cells 5-10 /HPF Urine Crystals NONE /LPF Urine Bacteria LARGE H /HPF Urine Casts NONE /LPF Urine Mucus SMALL H /LPF Urine Culture Indicated YES Glucose Level 129 H 70-105 MG/DL OB - Assessment/Plan/Diagnosis Assessment Assessment: induction of labor Admission Dx 35 yo @ 38.6 GDMA2 on oral hypoglycemics Tobacco use in Schizoeffective disorder GBS neg Admission Status: Inpatient Order (span 2 midnights) Reason for Inpatient Admission: 38 week inducion of labor Plan Plan: Induction Induction Method: per Misoprostol Protocol ABBY MARTINEZ DO Dec 14, 2020 08:03
[2020-12-14] MEDS ORDERED: FAMOTIDINE 20MG/2ML IV (PEPCID) IV ONE (13:15)
[2020-12-14] MEDS ORDERED: LACTATED RINGERS 1,000 ML IV PRN ×2 (13:15)
[2020-12-14] MEDS ORDERED: ACETAMINOPHEN 500 MG TAB (TYLENOL) ONE (13:15)
[2020-12-14] MEDS ORDERED: CITRIC ACID/SOB CIT (BICITRA) 30 ML UDC PO ONE (13:15)
[2020-12-14] MEDS ORDERED: METOCLOPRAMIDE INJ 10 MG/2 ML (REGLAN) IV ONE (13:15)
[2020-12-14] MEDS ORDERED: ACETAMINOPHEN 500 MG TAB (TYLENOL) PO ONE (13:30)
[2020-12-14] MEDS ORDERED: ceFAZolin 2 GM IV Premixed 50 ML IV ONE (13:30)
[2020-12-14] MEDS ORDERED: fentaNYL INJECTION 100 MCG/2 ML AMP ONE (13:46)
[2020-12-14] MEDS ORDERED: OXYTOCIN PRE-MIX DRIP 1,000 ML IV ONE (13:46)
[2020-12-14] MEDS ORDERED: TETANUS,DIPTH,PERTUSS P/F (BOOSTRIX) 0.5 ML VIAL IM SCH (14:15)
[2020-12-14] MEDS ORDERED: MEASLES,MUMPS,RUBELLA 1 EA INJ SC SCH (14:15)
[2020-12-14] MEDS ORDERED: ONDANSETRON 4 MG/2 ML (SDV) Z0FRAN IVP PRN (14:15)
--- NOTE | 2020-12-14 14:15 | Progress Note ---
Standard Progress Note Progress Notes/Assess & Plan Date Seen by a Provider: Dec 14, 2020 Time Seen by a Provider: 14:00 Progress/Assessment & Plan Patient is fed up with induction. She was admitted last night and given cytotec overnight without cervical change this am, unable to AROM, and continued cytotec use has shown no cervical change. I discussed with patient option to continue induction, or take a break for a small amount of time, she is wanting to be finished with delivery. Due to failure to progress, PLTCS discussed and reviewed. Risk reviewed, will proceed. ABBY MARTINEZ DO Dec 14, 2020 2:15 pm
[2020-12-14] MEDS ORDERED: ONDANSETRON 4 MG/2 ML (SDV) Z0FRAN ONE (14:30)
[2020-12-14] MEDS ORDERED: KETOROLAC 30 MG/ML VIAL ONE (14:54)
[2020-12-14] MEDS ORDERED: BUPIVACAINE 0.25% 30 ML (SENSORCAINE) VIAL ONE (15:08)
[2020-12-14] MEDS ORDERED: NALOXONE 0.4 MG/ML 1 ML (NARCAN) VIAL IV PRN (15:30)
[2020-12-14] MEDS ORDERED: ONDANSETRON 4 MG/2 ML (SDV) Z0FRAN IV PRN (15:30)
[2020-12-14] MEDS ORDERED: diphenhydrAMINE 50 MG/ML INJ (BENADRYL) IV PRN (15:30)
[2020-12-14] MEDS: OXYTOCIN PRE-MIX DRIP 500 ML IV SCH ×2 (16:45→20:23)
--- NOTE | 2020-12-14 17:27 | OPERATIVE REPORT ---
DATE OF SERVICE: PREOPERATIVE DIAGNOSES: 1. A 35-year-old female, G1, P0 at 38 weeks and 5 days gestation. 2. Failure to progress. 3. GDMA2, on metformin. 4. History of schizoaffective disorder. 5. History of tobacco use in . 6. GBS negative. POSTOPERATIVE DIAGNOSES: 1. A 35-year-old female, G1, P0 at 38 weeks and 5 days gestation. 2. Failure to progress. 3. GDMA2, on metformin. 4. History of schizoaffective disorder. 5. History of tobacco use in . 6. GBS negative. PROCEDURE: Primary low transverse section. SURGEON: Saurav Martinez DO ANESTHESIA: Spinal. ESTIMATED BLOOD LOSS: 600 mL. URINE OUTPUT: 150 mL clear at the end of procedure. FLUIDS: Two liters of lactated Ringer's solution. FINDINGS: A live female infant weighing 6 pounds 12 ounces, Apgars of 3 and 9. Grossly normal appearing uterus, bilateral fallopian tubes and ovaries. SPECIMEN SENT: Placenta. INDICATIONS FOR PROCEDURE: This 35-year-old female is a patient of [facility] who had sought care with de. She is co-managed with maternal medicine at [place], [place]. Maternal medicine recommended delivery before 39 weeks due to her history of schizoaffective disorder, her medication use in , tobacco use in as well as GDMA2, controlled on glyburide. They managed her blood sugars; however, we did schedule induction for 38 weeks and 6 days gestation, which would be for today. On admission, she was fingertip dilated and was given Cytotec throughout the night and through most of the day today. Became very uncomfortable; however, made no cervical change. The patient became very frustrated and wanted to proceed with delivery. There was suspicion for cephalopelvic disproportion and an asynclitic presentation as well as with the patient's morbid obesity concerns for possible burning dystocia. Therefore, was offered, discussed and consented to by the patient. After all of her questions were answered including questions pertaining to risk, and recovery time frame, consent was obtained in the preoperative area and the patient was taken to the operating room. OPERATIVE REPORT IN DETAIL: Once in the operating room, anesthesia was found to be adequate. She was placed in supine position with leftward tilt, prepped and draped in normal sterile fashion. Timeout was performed and anesthesia was tested. I then make a Pfannenstiel skin incision with a knife and carried down to underlying fascia using Bovie cautery. Fascial incision extended laterally using Bovie cautery. Superior aspect of fascial incision was then grasped with Jorge clamps, tented up and dissected off the underlying rectus muscles. The inferior aspect of the fascial incision was then grasped with Jorge clamps, tented up and dissected off the underlying rectus muscles. Rectus muscles were then dissected down the midline using Norman scissors, which exposed the peritoneum, which I entered bluntly, and extended using blunt traction. An Marco Antonio ring retractor was placed in the peritoneal incision, which offers excellent lateral sidewall retraction. I then identified the lower uterine segment, which was found to be thinned out and make a low transverse incision to the vesicouterine peritoneum and bluntly dissected off the lower uterine segment. I proceeded with my myotomy until membranes were visualized, at which point I extended the uterine incision laterally and superiorly using bandage scissors. Amniotomy was performed, in a process of doing this, clear fluid was noted. Infant was found in vertex presentation. With gentle fundal pressure, the infant's head was delivered through the incision where the nares and oropharynx were bulb suctioned. Anterior and posterior shoulders were delivered. Infant was then brought to the operative field where cord was doubly clamped and cut and infant was handed off to waiting nurses in attendance. Cord blood was collected, 3-vessel cord with intact placenta was delivered spontaneously thereafter. IV Pitocin was initiated to facilitate uterine contraction. Uterine fundus confirmed by manual massage. The uterus was then exteriorized and cleared of all endometrial clots and debris. I then proceeded with closing the uterine incision using 0 Vicryl suture in running locked fashion. Second layer of 0 Monocryl was placed. Excellent hemostasis was noted after doing this. I then placed the uterus back in the pelvis and copiously irrigated the pelvis using normal saline. There was no active bleeding noted from any of my dissection planes. I placed Interceed antiadhesive over my low transverse incision and then proceeded with removing the Marco Antonio ring retractor and closing the peritoneum using 2-0 Vicryl suture in a running fashion. The rectus muscles were reapproximated using 3-0 Vicryl suture in interrupted fashion. The fascia was reapproximated using 0 Vicryl suture in running fashion. The subcutaneous tissue was reapproximated using 3-0 plain an interrupted subcutaneous stitch and the skin was reapproximated using sandy. Sterile dressing with adhesive white tape. Two grams of Ancef given preoperatively for infection prophylaxis. Lap and sponge count was correct at the end of procedure. Instrument counts correct as well. Job ID: [id number] DocumentID: [id number] Dictated Date: 12/14/2020 16:38:11 [employer] Plant Technical Director Date: 12/14/2020 17:27:13 Dictated By: SAURAV MARTINEZ DO
[2020-12-14] MEDS: DOCUSATE SODIUM 100 MG (COLACE) CAP PO SCH (19:48)
[2020-12-14] MEDS: HYDROcodone/APAP 5 MG/325 MG (LORTAB) TAB PO PRN (19:48)
[2020-12-14] MEDS ORDERED: CATHETER FLUSH 10 ML SYR IV SCH (22:00)
[2020-12-14] MEDS: KETOROLAC 30 MG/ML VIAL IV SCH (22:38)
[2020-12-14] MEDS: CATHETER FLUSH 10 ML SYR IV PRN (22:38)
[2020-12-15 00:30] VITALS: BP 124/65
[2020-12-15 03:43] VITALS: BP 137/82
[2020-12-15] MEDS: CATHETER FLUSH 10 ML SYR IV PRN (03:43)
[2020-12-15] MEDS: KETOROLAC 30 MG/ML VIAL IV SCH ×3 (03:43→20:00)
[2020-12-15] MEDS: HYDROcodone/APAP 5 MG/325 MG (LORTAB) TAB PO PRN ×4 (03:43→21:34)
[2020-12-15 05:56] LABS: BASOPHILS % (AUTO) 0 % (0-10); EOSINOPHILS # (AUTO) 0.2 10^3/uL (0.0-0.3); EOSINOPHILS % (AUTO) 2 % (0-10); HEMATOCRIT 32 % (35-52); HEMOGLOBIN 10.2 g/dL (11.5-16.0); LYMPHOCYTES # (AUTO) 2.1 10^3/uL (1.0-4.0); LYMPHOCYTES % (AUTO) 20 % (12-44); MEAN CORPUSCULAR HEMOGLOBIN 27 pg (25-34); MEAN CORPUSCULAR HGB CONC 32 g/dL (32-36); MEAN CORPUSCULAR VOLUME 85 fL (80-99); MEAN PLATELET VOLUME 10.4 fL (9.0-12.2); MONOCYTES # (AUTO) 0.8 10^3/uL (0.0-1.0); MONOCYTES % (AUTO) 7 % (0-12); NEUTROPHILS # (AUTO) 7.2 10^3/uL (1.8-7.8); NEUTROPHILS % (AUTO) 69 % (42-75); PLATELET COUNT 258 10^3/uL (130-400); WHITE BLOOD COUNT 10.4 10^3/uL (4.3-11.0)
--- NOTE | 2020-12-15 08:12 | Postpartum Progress Note ---
Note Note Day # 1 Subjective: Patient is without complaints. Ambulating, voiding. Tolerating a regular diet without nausea or vomiting. Normal lochia. Pain is well controlled with oral pain medications. Objective: Physical Exam: General - Alert and oriented, no apparent distress Abdomen - Soft, appropriately tender to palpation, non-distended, fundus firm at umbilicus Extremities - no edema, negative Deborah's bilaterally Incision- c/d/i Assessment: POD 1 PLTCS Acute blood loss anemia Plan: Routine care. Encourage breast feeding. Encourage ambulation. Ferrous sulfate supplementation. Plan for discharge tomorrow Vitals - Labs Vital Signs - I&O Vital Signs Date Time Temp Pulse Resp B/P (MAP) Pulse Ox O2 Delivery O2 Flow Rate FiO2 12/15/20 03:43 36.2 76 18 137/82 (100) 98 Room Air 12/15/20 00:30 36.0 93 18 124/65 (84) 96 Room Air 12/14/20 19:48 36.6 78 18 119/74 (89) 95 Room Air 12/14/20 17:00 36.4 78 18 132/67 (88) 96 Room Air 12/14/20 16:23 Room Air 12/14/20 16:15 36.2 18 112/97 (102) 98 Room Air 12/14/20 16:09 Room Air 12/14/20 16:01 36.2 18 122/77 (92) 97 Room Air 12/14/20 15:54 Room Air 12/14/20 15:44 36.2 18 111/65 (80) 98 Room Air 12/14/20 15:40 Room Air 12/14/20 15:28 35.9 18 118/69 (85) 99 Room Air 12/14/20 10:37 73 18 155/75 (101) Room Air 12/14/20 10:10 37.6 12/14/20 09:38 85 18 141/79 (99) Room Air 12/14/20 08:37 87 18 140/74 (96) Room Air 12/14/20 08:12 79 18 129/60 (83) Room Air I & O 12/15/20 07:00 Intake Total 1050 ml Output Total 2150 ml Balance -1100 ml Labs Laboratory Tests 12/14/20 08:19: Glucometer 86 12/15/20 05:16: White Blood Count 10.4, Red Blood Count 3.82, Hemoglobin 10.2L, Hematocrit 32L, Mean Corpuscular Volume 85, Mean Corpuscular Hemoglobin 27, Mean Corpuscular Hemoglobin Concent 32, Red Cell Distribution Width 13.1, Platelet Count 258, Mean Platelet Volume 10.4, Immature Granulocyte % (Auto) 1, Neutrophils (%) (Auto) 69, Lymphocytes (%) (Auto) 20, Monocytes (%) (Auto) 7, Eosinophils (%) (Auto) 2, Basophils (%) (Auto) 0, Neutrophils # (Auto) 7.2, Lymphocytes # (Auto) 2.1, Monocytes # (Auto) 0.8, Eosinophils # (Auto) 0.2, Basophils # (Auto) 0.0, Immature Granulocyte # (Auto) 0.1, Glucose Level 94 ABBY MARTINEZ DO Dec 15, 2020 08:12
--- NOTE | 2020-12-15 08:13 | Discharge Inst-Women's Service ---
Discharge Inst-Women's Serv Depart Medication/Instructions New, Converted or Re-Newed RX: RX on Chart Final Diagnosis POD 2 PLTCS Problems Reviewed?: Yes Consults/Follow Up Additional Follow Up: Yes Orders/Referrals Dr. Dee in 7-10 days and in 6 weeks Activity Activity: Activity as Tolerated Driving Instructions: No Driving for 1 Week NO SMOKING: NO SMOKING Nothing Inside Vagina: No Douching, No Fenton, No Tampons Diet Discharge Diet: No Restrictions Symptoms to Report to : Bleeding Excessive, Pain Increased, Fever Over 101 Degrees F, Vaginal Bleeding Increase, Questions/Concerns For Any Problems or Questions: Contact Your Physician Skin/Wound Care Infection Signs and Symptoms: Increased Redness, Foul Odor of Wound, Increased Drainage, Skin Itchy or Has a Rash, Increased Swelling, Temperature Above 101 F Operative Area Clean and Dry: Keep Incision Clean/Dry Stitches/[place]/Dermabond: Dermabond, Care of Stitches Bathing Instructions: ABBY Hahn DO Dec 15, 2020 08:13
[2020-12-15] MEDS ORDERED: IBUP-844 PO (08:14)
[2020-12-15] MEDS ORDERED: ACHD5005 PO (08:14)
[2020-12-15] MEDS ORDERED: DCS100C PO (08:14)
[2020-12-15] MEDS: DOCUSATE SODIUM 100 MG (COLACE) CAP PO SCH ×2 (10:09→21:34)
[2020-12-15 10:13] VITALS: BP 137/91
[2020-12-15 14:48] VITALS: BP 135/74
[2020-12-15] MEDS: IBUPROFEN 600 MG (MOTRIN) TAB PO SCH ×2 (16:31→21:34)
[2020-12-15 21:34] VITALS: BP 138/82
[2020-12-16 03:58] VITALS: BP 160/86
[2020-12-16] MEDS: IBUPROFEN 600 MG (MOTRIN) TAB PO SCH ×2 (03:58→08:20)
[2020-12-16] MEDS: HYDROcodone/APAP 5 MG/325 MG (LORTAB) TAB PO PRN (03:58)
[2020-12-16] MEDS: DOCUSATE SODIUM 100 MG (COLACE) CAP PO SCH (08:20)
[2020-12-16 08:25] VITALS: BP 146/93
--- NOTE | 2020-12-16 09:37 | Postpartum Progress Note ---
Post Op Post-operative Day #2 s/p PLTCS, GDM A2, schizoaffective D/O Very anxious today. Initial BP this am was elevated after she got very anxious. Repeat 146/86. Will repeat again and determine if she can go home. Needs close Follow up with blood pressures. Subjective: Patient is without complaints. Ambulating, voiding after ralph removed. Tolerating a regular diet without nausea or vomiting. Normal lochia. Pain is well controlled with oral pain medications. Passing flatus. Objective: 12/16/20 03:58 Temp 36.4 Pulse 80 Resp 18 B/P (MAP) 160/86 (110) Pulse Ox 96 O2 Delivery Room Air Physical Exam: General - Alert and oriented, no apparent distress Abdomen - Soft, appropriately tender to palpation, non-distended, fundus firm at umbilicus Incision - clean, dry and intact; no erythema or induration, no drainage Extremities - no edema, negative Deborah's bilaterally [] Assessment: 1. post-operative day # 2, status post PLTCS. Recovering well, hemodynamically stable Acute blood loss anemia - mild Plan: Routine post-operative care. Encourage breast feeding. Encourage ambulation. VTE prophylaxis: SCDs. Ferrous sulfate supplementation. Plan for discharge today per Dr. Dee's orders Vitals - Labs Vital Signs - I&O Vital Signs Date Time Temp Pulse Resp B/P (MAP) Pulse Ox O2 Delivery O2 Flow Rate FiO2 12/16/20 03:58 36.4 80 18 160/86 (110) 96 Room Air 12/15/20 21:34 36.4 65 18 138/82 (100) 97 Room Air 12/15/20 14:48 36.4 73 18 135/74 (94) 97 Room Air 12/15/20 10:13 36.4 83 18 137/91 (106) 98 Room Air Labs Microbiology 12/13/20 Urine Culture - Final, Complete 3 or more isolates JUSTINE ALVAREZ DO Dec 16, 2020 09:37
[2020-12-16 09:38] VITALS: BP 141/75
== END 2020-12-16 11:23 | disposition home or self-care (01) | DRG 787 ==
LOC: LDRP 19:05
PROVIDERS: ADMIT Obstetrics & Gynecology; ATTEND Obstetrics & Gynecology
PROC: 10D00Z1 Extraction of Products of Conception, Low, Open Approach (ICD-10-PCS; principal; 2020-12-14 14:00)
DX: O24.429 Gestational diabetes mellitus in childbirth, unspecified control (principal); D62 Acute posthemorrhagic anemia; Z3A.38 38 weeks gestation of pregnancy; Z37.0 Single live birth; O99.334 Smoking (tobacco) complicating childbirth; F17.210 Nicotine dependence, cigarettes, uncomplicated; Z20.822 Contact with and (suspected) exposure to COVID-19; F25.9 Schizoaffective disorder, unspecified; O99.344 Other mental disorders complicating childbirth; O62.0 Primary inadequate contractions; O90.81 Anemia of the puerperium; Z79.84 Long term (current) use of oral hypoglycemic drugs
CPT/HCPCS: 36415; 81000; 82947; 82962; 85025; 86850; 86900; 86901; 87088; 87635; 90707

== ENCOUNTER 2020-12-20 10:35 | Emergency (ER) | payer MEDICARE, MEDICAID ==
[~2020-12-20] VITALS: Ht 154 cm; Wt 108.8 kg
[~2020-12-20 10:35] MED LIST changes: +DCS100C PO; +IBUP-844 PO; +OMEP20TA7 PO; +QUET100T PO
--- NOTE | 2020-12-20 12:04 | ED Abdominal Pain ---
General Chief Complaint: Abdominal/GI Problems Stated Complaint: S/P CSECTION, SWOLLEN, PAIN Nursing Triage Note: PT PRESENTS TO ED VIA POV FROM HOME WITH COMPLAINTS OF LOWER ABDOMINAL PAIN AND SWELLING. PT REPORTS SHE HAD A C-SEC ON 12/14. Sepsis Screen: No Definite Risk Source of Information: Patient Exam Limitations: No Limitations History of Present Illness Date Seen by Provider: Dec 20, 2020 Time Seen by Provider: 12:02 Initial Comments To ER with reports of lower abdominal pain and swelling and redness. She had a on 12/14. She went home and about 2 days later she developed some pedal edema and has had some progressive erythema and swelling of the pannus. She does have some shortness of breath and reports that she is quite anxious. She is concerned about the swelling in her legs and has Lasix at home but has not taken it. It was prescribed by Dr. Dee. Timing/Duration: Getting Worse Severity/Quality: Moderate Location: Generalized Abdomen, Suprapubic Radiation: No Radiation Associated Symptoms: Denies Symptoms Allergies and Home Medications Allergies Coded Allergies: aspirin (Verified Allergy, Unknown, 01/18/06) clozapine (Verified Allergy, Unknown, tachycardia and high fever, 06/11/17) cyclobenzaprine (Verified Allergy, Unknown, tachycardia and high fever, 06/11/17) shellfish derived (Unverified Allergy, Unknown, Hives, 12/14/20) Uncoded Allergies: SEAFOOD (Allergy, Unknown, 01/18/06) Home Medications Albuterol Sulfate 1 Puff Puff, 2 PUFF IH BID, (Reported) 1 PUFF = 90 MCG Docusate Sodium 100 Mg Capsule, 100 MG PO BID PRN for CONSTIPATION-1ST LINE Prescribed by: ABBY DEE on 12/15/20813 Hydrocodone Bit/Acetaminophen 1 Tab Tab, 1-2 EA PO Q6HR PRN for PAIN-MODERATE (5-7) Prescribed by: ABBY DEE on 12/15/20813 Ibuprofen 600 Mg Tablet, 600 MG PO Q6H Prescribed by: ABBY DEE on 12/15/20813 Metformin HCl 500 Mg Tablet, 500 MG PO BID, (Reported) Omeprazole 20 Mg Tablet.dr, 20 MG PO DAILY, (Reported) Quetiapine Fumarate 100 Mg Tablet, 100 MG PO DAILY, (Reported) Sulfamethoxazole/Trimethoprim 1 Each Tablet, 1 EACH PO BID Prescribed by: DENISE FREDERICK on 12/20/20 1323 Patient Home Medication List Home Medication List Reviewed: Yes Review of Systems Review of Systems Constitutional: see HPI, chills EENTM: No Symptoms Reported Respiratory: No Symptoms Reported Cardiovascular: No Symptoms Reported Gastrointestinal: See HPI, Abdominal Pain Genitourinary: No Symptoms Reported Musculoskeletal: no symptoms reported Skin: see HPI Psychiatric/Neurological: No Symptoms Reported Endocrine: No Symptoms Reported Hematologic/Lymphatic: No Symptoms Reported Past Aijrtff-Lseycg-Prkzwe Hx Patient Social History Alcohol Use: Denies Use Drug of Choice: marijauna, meth, heroine Smoking Status: Current Everyday Smoker Type Used: Cigarettes 2nd Hand Smoke Exposure: Yes Recent Infectious Disease Expo: No Recent Hopitalizations: No Immunizations Up To Date Tetanus Booster (TDap): Unknown Date of Influenza Vaccine: Aug 23, 2020 Seasonal Allergies Seasonal Allergies: Yes (mild) Past Medical History Surgeries: Yes (pilonidal cyst removal) Section Respiratory: Yes COPD Cardiac: Yes Hypertension Neurological: No Reproductive Disorders: No Genitourinary: No Gastrointestinal: No Musculoskeletal: No Endocrine: Yes Diabetes, Non-Insulin dep Cancer: No Psychosocial: Yes PTSD, Bipolar Integumentary: No Blood Disorders: No Adverse Reaction/Blood Tranf: No Physical Exam Vital Signs Vital Signs - First Documented 12/20/20 11:23 Temp 37.0 Pulse 90 Resp 18 B/P (MAP) 154/72 (99) Pulse Ox 99 Capillary Refill : Less Than 3 Seconds Height/Weight/BMI Height: 5'6.00" Weight: 230lbs. 0.0oz. 104.925304hg; 45.00 BMI Method:Stated General Appearance: WD/WN, no apparent distress, other (appears anxious) HEENT: PERRL/EOMI, normal ENT inspection Respiratory: no respiratory distress, no accessory muscle use Cardiovascular: regular rate, rhythm Gastrointestinal: normal bowel sounds, soft, tenderness, other ([place]'orange appearance of the lower abdomen/pannus due to the edema. There is some erythema superior to this) Extremities: normal range of motion, non-tender Neurologic/Psychiatric: alert, normal mood/affect, oriented x 3 Skin: normal color, warm/dry Progress/Results/Core Measures Results/Orders Lab Results Laboratory Tests Test 12/20/20 11:39 12/20/20 11:51 Range/Units Urine Color YELLOW Urine Clarity SL CLOUDY Urine pH 7.0 5-9 Urine Specific [place] <=1.005 1.016-1.022 Urine Protein NEGATIVE NEGATIVE Urine Glucose (UA) NEGATIVE NEGATIVE Urine Ketones NEGATIVE NEGATIVE Urine Nitrite NEGATIVE NEGATIVE Urine Bilirubin NEGATIVE NEGATIVE Urine Urobilinogen 0.2 < = 1.0 MG/DL Urine Leukocyte Esterase NEGATIVE NEGATIVE Urine RBC (Auto) 3+ H NEGATIVE Urine RBC 0-2 /HPF Urine WBC NONE /HPF Urine Squamous Epithelial Cells RARE /HPF Urine Crystals NONE /LPF Urine Bacteria NEGATIVE /HPF Urine Casts NONE /LPF Urine Mucus NEGATIVE /LPF Urine Culture Indicated NO White Blood Count 8.9 4.3-11.0 10^3/uL Red Blood Count 4.13 3.80-5.11 10^6/uL Hemoglobin 11.2 L 11.5-16.0 g/dL Hematocrit 35 35-52 % Mean Corpuscular Volume 84 80-99 fL Mean Corpuscular Hemoglobin 27 25-34 pg Mean Corpuscular Hemoglobin Concent 32 32-36 g/dL Red Cell Distribution Width 12.8 10.0-14.5 % Platelet Count 338 130-400 10^3/uL Mean Platelet Volume 9.8 9.0-12.2 fL Immature Granulocyte % (Auto) 1 % Neutrophils (%) (Auto) 80 H 42-75 % Lymphocytes (%) (Auto) 11 L 12-44 % Monocytes (%) (Auto) 6 0-12 % Eosinophils (%) (Auto) 2 0-10 % Basophils (%) (Auto) 0 0-10 % Neutrophils # (Auto) 7.2 1.8-7.8 10^3/uL Lymphocytes # (Auto) 1.0 1.0-4.0 10^3/uL Monocytes # (Auto) 0.5 0.0-1.0 10^3/uL Eosinophils # (Auto) 0.1 0.0-0.3 10^3/uL Basophils # (Auto) 0.0 0.0-0.1 10^3/uL Immature Granulocyte # (Auto) 0.1 0.0-0.1 10^3/uL Sodium Level 142 135-145 MMOL/L Potassium Level 3.9 3.6-5.0 MMOL/L Chloride Level 111 H 98-107 MMOL/L Carbon Dioxide Level 22 21-32 MMOL/L Anion Gap 9 5-14 MMOL/L Blood Urea Nitrogen 9 7-18 MG/DL Creatinine 0.66 0.60-1.30 MG/DL Estimat Glomerular Filtration Rate > 60 BUN/Creatinine Ratio 14 Glucose Level 90 70-105 MG/DL Calcium Level 8.7 8.5-10.1 MG/DL Corrected Calcium 9.3 8.5-10.1 MG/DL Magnesium Level 1.8 1.6-2.4 MG/DL Total Bilirubin 0.3 0.1-1.0 MG/DL Aspartate Amino Transf (AST/SGOT) 20 5-34 U/L Alanine Aminotransferase (ALT/SGPT) 20 0-55 U/L Alkaline Phosphatase 125 40-136 U/L B-Type Natriuretic Peptide 114.0 H <100.0 PG/ML Total Protein 6.2 L 6.4-8.2 GM/DL Albumin 3.2 3.2-4.5 GM/DL Thyroid Stimulating Hormone (TSH) 1.24 0.35-4.94 UIU/ML Free Thyroxine 1.13 0.70-1.48 NG/DL My Orders Orders - DENISE FREDERICK APRN Chest 1 View, Ap/Pa Only (12/20/20 12:01) Lorazepam Injection (Ativan Injection) (12/20/20 12:15) Ct Anny Chest/Noang Abd-Pelv W (12/20/20 12:04) Iohexol Injection (Omnipaque 350 Mg/Ml 1 (12/20/20 12:15) Received Contrast (Hold Metformin- Contr (12/20/20 12:15) Ns (Ivpb) (Sodium Chloride 0.9% Ivpb Bag (12/20/20 12:15) Sulfamethoxazole/Trimet Ds Tab (Bactrim (12/20/20 13:30) Clonidine Tablet (Catapres Tablet) (12/20/20 13:45) Clonidine Tablet (Catapres Tablet) (12/20/20 13:28) Medications Given in ED Current Medications Medications Dose Ordered Sig/Chelsy Route Start Time Stop Time Status Last Admin Dose Admin Clonidine HCl 0.1 mg ONCE ONCE PO 12/20/20 13:45 12/20/20 13:46 12/20/20 13:34 0.1 MG Iohexol 100 ml ONCE ONCE IV 12/20/20 12:15 12/20/20 12:16 DC 12/20/20 12:52 90 ML Lorazepam 0.5 mg ONCE PRN IVP 12/20/20 12:15 12/20/20 12:19 0.5 MG Sodium Chloride 100 ml ONCE ONCE IV 12/20/20 12:15 12/20/20 12:16 DC 12/20/20 12:52 80 ML Trimethoprim/ Sulfamethoxazole 1 ea ONCE ONCE PO 12/20/20 13:30 12/20/20 13:31 DC 12/20/20 13:34 1 EA Vital Signs/I&O 12/20/20 11:23 Temp 37.0 Pulse 90 Resp 18 B/P (MAP) 154/72 (99) Pulse Ox 99 Blood Pressure Mean: 99 Departure Communication (Admissions) 1332-there is no protein in the urine, blood pressure 157/104. I will give her a clonidine 0.1 mg here and she states she will start her Lasix when she gets home which should also help with the hypertension. She feels well. Impression Primary Impression: Abdominal wall cellulitis Additional Impressions: Abdominal wall seroma Pedal edema Disposition: HOME, SELF-CARE Condition: Improved Departure-Patient Inst. Decision time for Depature: 13:21 Referrals: DARION HERNANDEZ DO (PCP) Primary Care Physician SUPRIYA RODRIGUEZ (Family) Primary Care Physician Patient Instructions: Cellulitis (Skin Infection), Adult ED, NO INSTRUCTIONS GIVEN Add. Discharge Instructions: 1. Take the Lasix as directed by Dr. Dee. Take the antibiotic as directed. Return to ER for any worsening. Follow-up with Dr. Dee this week for recheck. All discharge instructions reviewed with patient and/or family. Voiced understanding. Scripts Sulfamethoxazole/Trimethoprim (Bactrim Ds Tablet) 1 Each Tablet 1 EACH PO BID, #14 TAB Prov: DENISE FREDERICK APRN 12/20/20 DENISE FREDERICK APRN Dec 20, 2020 12:04
[2020-12-20 12:07] LABS: BASOPHILS % (AUTO) 0 % (0-10); EOSINOPHILS # (AUTO) 0.1 10^3/uL (0.0-0.3); EOSINOPHILS % (AUTO) 2 % (0-10); HEMATOCRIT 35 % (35-52); HEMOGLOBIN 11.2 g/dL (11.5-16.0); LYMPHOCYTES % (AUTO) 11 % (12-44); MEAN CORPUSCULAR HEMOGLOBIN 27 pg (25-34); MEAN CORPUSCULAR HGB CONC 32 g/dL (32-36); MEAN CORPUSCULAR VOLUME 84 fL (80-99); MEAN PLATELET VOLUME 9.8 fL (9.0-12.2); MONOCYTES # (AUTO) 0.5 10^3/uL (0.0-1.0); MONOCYTES % (AUTO) 6 % (0-12); NEUTROPHILS # (AUTO) 7.2 10^3/uL (1.8-7.8); NEUTROPHILS % (AUTO) 80 % (42-75); PLATELET COUNT 338 10^3/uL (130-400); WHITE BLOOD COUNT 8.9 10^3/uL (4.3-11.0)
[2020-12-20 12:08] LABS: ALBUMIN 3.2 GM/DL (3.2-4.5)
[2020-12-20 12:09] LABS: CHLORIDE 111 MMOL/L (98-107); POTASSIUM 3.9 MMOL/L (3.6-5.0); SODIUM 142 MMOL/L (135-145)
[2020-12-20 12:10] LABS: CALCIUM 8.7 MG/DL (8.5-10.1)
[2020-12-20 12:11] LABS: GLUCOSE 90 MG/DL (70-105); TOTAL PROTEIN 6.2 GM/DL (6.4-8.2)
[2020-12-20 12:12] LABS: CARBON DIOXIDE 22 MMOL/L (21-32)
[2020-12-20 12:13] LABS: BILIRUBIN,TOTAL 0.3 MG/DL (0.1-1.0)
[2020-12-20 12:14] LABS: ALKALINE PHOSPHATASE 125 U/L (40-136); CREATININE SERUM 0.66 MG/DL (0.60-1.30); GFR ESTIMATED > 60
[2020-12-20] MEDS ORDERED: HOLD METFORMIN - RECEIVED CONTRAST 20 ML VIAL IV SCH (12:15)
[2020-12-20] MEDS ORDERED: IOHEXOL 350 MG/ML 100 ML (OMNIPAQUE 350) VIAL IV ONE (12:15)
[2020-12-20] MEDS ORDERED: LORazepam INJ 2 MG/ML (ATIVAN) VIAL IVP PRN (12:15)
[2020-12-20] MEDS ORDERED: NS 100 ML (IVPB) BAG IV ONE (12:15)
[2020-12-20 12:16] LABS: BUN/CREATININE RATIO 14
[2020-12-20 12:18] LABS: ALANINE AMINOTRANSFERASE 20 U/L (0-55); MAGNESIUM 1.8 MG/DL (1.6-2.4)
[2020-12-20 12:27] LABS: BILIRUBIN,URINE NEGATIVE (NEGATIVE); CLARITY,URINE SL CLOUDY; COLOR,URINE YELLOW; GLUCOSE, URINE (UA) NEGATIVE (NEGATIVE); KETONES,URINE NEGATIVE (NEGATIVE); LEUKOCYTE ESTERASE ,URINE NEGATIVE (NEGATIVE); NITRITE,URINE NEGATIVE (NEGATIVE); PROTEIN,URINE NEGATIVE (NEGATIVE)
[2020-12-20 12:41] LABS: FREE T4 (FREE THYROXINE) 1.13 NG/DL (0.70-1.48)
[2020-12-20 12:47] LABS: BACTERIA,URINE NEGATIVE /HPF; RBC,URINE 0-2 /HPF; SQUAMOUS EPITHELIAL CELL,UR RARE /HPF
--- NOTE | 2020-12-20 13:02 | Diagnostic Imaging Report ---
INDICATION: Shortness of breath. EXAMINATION: Portable chest at 12:59 PM. FINDINGS: The heart size and pulmonary vascularity are normal. The lungs are clear. There are no effusions or pneumothoraces. IMPRESSION: Negative chest. Dictated by: Dictated on workstation # [id number]
--- NOTE | 2020-12-20 13:11 | Diagnostic Imaging Report ---
EXAMINATION: CT angiography chest with and without CT abdomen & pelvis with and without. TECHNIQUE: Noncontrast enhanced helical images were obtained through the chest, abdomen and pelvis. Contrast enhanced thin section helical images were obtained through the chest, abdomen and pelvis with intravenous contrast timed for the optimal opacification of the arterial structures per departmental CTA protocol. Post-processing, retro reconstructions and interpretation of angiographic images of the vessels was performed. 3D MIP reconstructions were performed and reviewed. All CT scans use one or more of the following dose optimizing techniques: automated exposure control, MA and/or KvP adjustment based on a patient size and exam type, or iterative reconstruction. HISTORY: Shortness breath, abdominal pain, recent section. COMPARISON: None available. FINDINGS: There is no pulmonary embolism. There is no edema or pneumonia. No pleural effusion. No pneumothorax. No suspicious nodules. There are a few areas of mosaic perfusion consistent with small vessels or small airways disease. There is no axillary or supraclavicular lymphadenopathy. There is no mediastinal lymphadenopathy. Heart size is normal. There are no coronary artery calcifications. No pericardial effusion. Aorta is normal in caliber. The liver is normal without focal lesion. There is no biliary ductal dilation. Gallbladder is normal. Pancreas is normal. Spleen is normal. Adrenal glands are normal. The kidneys are normal. There is no hydronephrosis. Urinary bladder is normal. There is gas within the endometrial canal and the canal is thickened with debris consistent with history of recent section. There is a 10.5 x 4.3 cm fluid collection in the anterior abdominal wall associated with the incision. There is body wall edema. There is no intraperitoneal fluid collection. Visualized bowel is normal in caliber without obstruction or inflammation. No free fluid or air. No abdominal or pelvic lymphadenopathy. Aorta is normal in caliber without aneurysm. There are no suspicious osseous lesions. IMPRESSION: 1. No pulmonary embolism. 2. Gas and debris within a recently gravid uterus likely related to recent surgery and state. 3. Anterior abdominal wall fluid collection measuring 10.5 x 4.3 cm which may represent a seroma or abscess. Dictated by: Dictated on workstation # [id number]
[2020-12-20] MEDS ORDERED: SULF1TAB35 PO (13:23)
[2020-12-20] MEDS ORDERED: cloNIDine 0.1 MG (CATAPRES) TAB ONE (13:28)
[2020-12-20] MEDS ORDERED: TRIM/SULFAMETH 160/800 (SEPTRA DS) TAB PO ONE (13:30)
[2020-12-20 13:45] VITALS: BP 155/96
[2020-12-20] MEDS ORDERED: cloNIDine 0.1 MG (CATAPRES) TAB PO ONE (13:45)
== END 2020-12-20 13:45 | disposition home or self-care (01) ==
LOC: EDUNIT# 10:35 → ER 10:37
DX: O90.2 Hematoma of obstetric wound (principal); L03.311 Cellulitis of abdominal wall; R60.0 Localized edema; E11.9 Type 2 diabetes mellitus without complications; J44.9 Chronic obstructive pulmonary disease, unspecified; F31.9 Bipolar disorder, unspecified; F43.10 Post-traumatic stress disorder, unspecified; F17.210 Nicotine dependence, cigarettes, uncomplicated; Z79.84 Long term (current) use of oral hypoglycemic drugs; Z88.6 Allergy status to analgesic agent; Z88.8 Allergy status to other drugs, medicaments and biological substances
CPT/HCPCS: 36415; 71045; 71275; 74177; 80053; 81000; 83735; 83880; 84439; 84443; 85025

== ENCOUNTER → 2020-12-28 | Outpatient (CLI) | payer MEDICARE, MEDICAID ==
[~2020-12-28] MED LIST changes: +SULF1TAB35 PO
== END ==
LOC: WOUNDCARE 13:13
PROVIDERS: ATTEND Surgery
DX: L98.492 Non-pressure chronic ulcer of skin of other sites with fat layer exposed (principal); T81.31XA Disruption of external operation (surgical) wound, not elsewhere classified, initial encounter; E11.622 Type 2 diabetes mellitus with other skin ulcer; E66.01 Morbid (severe) obesity due to excess calories; L03.311 Cellulitis of abdominal wall
CPT/HCPCS: 11042; 11045; G0463

== ENCOUNTER → 2021-01-01 | Outpatient (CLI) | payer MEDICARE, MEDICAID | LOC: WOUNDCARE 10:56 | PROVIDERS: ATTEND Surgery | DX: L98.492 Non-pressure chronic ulcer of skin of other sites with fat layer exposed (principal); I96 Gangrene, not elsewhere classified; T81.31XA Disruption of external operation (surgical) wound, not elsewhere classified, initial encounter; E11.622 Type 2 diabetes mellitus with other skin ulcer; E66.01 Morbid (severe) obesity due to excess calories; L03.311 Cellulitis of abdominal wall; Z68.41 Body mass index [BMI] 40.0-44.9, adult | CPT/HCPCS: 11042; 11045; G0463 ==

== ENCOUNTER → 2021-01-11 | Outpatient (CLI) | payer MEDICARE, MEDICAID | LOC: WOUNDCARE 11:11 | PROVIDERS: ATTEND Surgery | DX: L98.492 Non-pressure chronic ulcer of skin of other sites with fat layer exposed (principal); I96 Gangrene, not elsewhere classified; T81.31XA Disruption of external operation (surgical) wound, not elsewhere classified, initial encounter; E11.622 Type 2 diabetes mellitus with other skin ulcer; E66.01 Morbid (severe) obesity due to excess calories; L03.311 Cellulitis of abdominal wall; Z68.41 Body mass index [BMI] 40.0-44.9, adult | CPT/HCPCS: 11042; 97605; G0463 ==

== ENCOUNTER → 2021-01-15 | Outpatient (CLI) | payer MEDICARE, MEDICAID | LOC: WOUNDCARE 08:55 | PROVIDERS: ATTEND Surgery | DX: L98.492 Non-pressure chronic ulcer of skin of other sites with fat layer exposed (principal); T81.31XA Disruption of external operation (surgical) wound, not elsewhere classified, initial encounter; E11.622 Type 2 diabetes mellitus with other skin ulcer; E66.01 Morbid (severe) obesity due to excess calories; E11.52 Type 2 diabetes mellitus with diabetic peripheral angiopathy with gangrene | CPT/HCPCS: 11042; G0463 ==

== ENCOUNTER 2021-08-09 22:16 | Emergency (ER) | payer MEDICARE, MEDICAID ==
[~2021-08-09] VITALS: Ht 154.9 cm; Wt 95.0 kg
[~2021-08-09 22:16] MED LIST changes: -DCS100C PO; +DOCU-239 PO; -SULF1TAB35 PO; +SULF1TAB38 PO
--- NOTE | 2021-08-09 22:24 | ED General ---
General Stated Complaint: LOW BLOOD SUGAR Source of Information: Patient, Spouse Exam Limitations: No Limitations History of Present Illness Date Seen by Provider: Aug 09, 2021 Time Seen by Provider: 22:08 Initial Comments Patient to the ER by private conveyance from home with her that she was feeling weak and tired and sleepy. She says in the last hour her blood sugar went down from [address] to 66 about 15 minutes prior to arrival. She is a diabetic on Metformin. She has a implanted glucometer device. She says she just feels very poorly and has a headache for the past several days. She not having any neck stiffness or soreness. She had some subjective chills but no measured fevers. She has not taken anything specific for it. She is in her second trimester of . She says this happens from time to time when her sugar drops and she feels very poorly. She is not having any dysuria diarrhea vomiting. She has had nausea and vomiting which she attributes to her . No back pain abdominal pain or chest pain. No shortness of air. Allergies and Home Medications Allergies Coded Allergies: aspirin (Verified Allergy, Unknown, 01/18/06) clozapine (Verified Allergy, Unknown, tachycardia and high fever, 06/11/17) cyclobenzaprine (Verified Allergy, Unknown, tachycardia and high fever, 06/11/17) shellfish derived (Unverified Allergy, Unknown, Hives, 12/14/20) Uncoded Allergies: SEAFOOD (Allergy, Unknown, 01/18/06) Patient Home Medication List Home Medication List Reviewed: Yes Albuterol Sulfate (Proair Hfa) 1 Puff Puff, 2 PUFF IH BID, (Reported) Entered as Reported by: DAYSI HOOVER on 06/11/17 1130 Docusate Sodium (Dok) 100 Mg Capsule, 100 MG PO BID PRN for CONSTIPATION-1ST LINE Prescribed by: ABBY MARTINEZ on 12/15/20 0814 Hydrocodone Bit/Acetaminophen (HYDROcodone/APAP 5 MG/325 MG TAB) 1 Tab Tab, 1-2 EA PO Q6HR PRN for PAIN-MODERATE (5-7) Prescribed by: ABBY MARTINEZ on 12/15/20 08 Ibuprofen (Ibu) 600 Mg Tablet, 600 MG PO Q6H Prescribed by: ABBY MARTINEZ on 2/26/21 0814 Metformin HCl (Metformin HCl) 500 Mg Tablet, 500 MG PO BID, (Reported) Entered as Reported by: DAYSI HOOVER on 06/11/17 1125 Omeprazole (Omeprazole) 20 Mg Tablet.dr, 20 MG PO DAILY, (Reported) Entered as Reported by: KARINA LUCERO on 12/13/202356 Quetiapine Fumarate (Seroquel) 100 Mg Tablet, 100 MG PO DAILY, (Reported) Entered as Reported by: KARINA LUCERO on 12/13/202356 Sulfamethoxazole/Trimethoprim (Bactrim Ds Tablet) 1 Each Tablet, 1 EACH PO BID Prescribed by: DENISE FREDERICK on 12/20/20 1323 Review of Systems Review of Systems Constitutional: No chills, No diaphoresis EENTM: No no symptoms reported, No ear discharge, No hearing loss Respiratory: No cough Cardiovascular: No chest pain, No palpitations Gastrointestinal: No abdominal pain, No constipation, No diarrhea, No loss of appetite; nausea Genitourinary: No discharge, No dysuria Musculoskeletal: No back pain Skin: No pruritus, No rash Psychiatric/Neurological: Denies Anxiety, Denies Depressed All Other Systems Reviewed Negative Unless Noted: Yes Past Ncxeaga-Rslpxh-Kfuwgr Hx Patient Social History Tobacco Use?: Yes Tobacco type used: Cigarettes Smoking Status: Current Everyday Smoker (Half pack to 1 pack/day) Use of E-Cig and/or Vaping dev: No Substance use?: No Alcohol Use?: No Immunizations Up To Date Tetanus Booster (TDap): Unknown Seasonal Allergies Seasonal Allergies: Yes (mild) Past Medical History Surgeries: Yes (pilonidal cyst removal) Section Respiratory: Yes COPD Cardiac: Yes Hypertension Neurological: No Reproductive Disorders: No Genitourinary: No Gastrointestinal: No Musculoskeletal: No Endocrine: Yes Diabetes, Non-Insulin dep Cancer: No Psychosocial: Yes PTSD, Bipolar Integumentary: No Blood Disorders: No Adverse Reaction/Blood Tranf: No Physical Exam Vital Signs Vital Signs - First Documented 08/09/21 22:16 Temp 36.8 Pulse 75 Resp 16 B/P (MAP) 131/64 (86) Pulse Ox 97 O2 Delivery Room Air Capillary Refill : Height, Weight, BMI Height: 5'6.00" Weight: 230lbs. 0.0oz. [id number]; 45.00 BMI Method:Stated General Appearance: Mild Distress, Obese Eyes: Bilateral Eye Normal Inspection, Bilateral Eye PERRL (3 mm symmetric bilateral), Bilateral Eye EOMI HEENT: PERRL/EOMI, TMs Normal, Normal ENT Inspection, Pharynx Normal; No Moist Mucous Membranes Neck: Full Range of Motion, Normal Inspection, Non Tender, Supple Respiratory: Lungs Clear, Normal Breath Sounds, No Accessory Muscle Use, No Respiratory Distress Cardiovascular: Regular Rate, Rhythm, No Edema Gastrointestinal: Normal Bowel Sounds, No Organomegaly, No Pulsatile Mass, Non Tender Extremity: Normal Capillary Refill, Normal Inspection, Non Tender, No Pedal Edema Neurologic/Psychiatric: Alert, Oriented x3, No Motor/Sensory Deficits, Normal Mood/Affect Skin: Normal Color, Warm/Dry Progress/Results/Core Measures Suspected Sepsis SIRS Temperature: Pulse: Respiratory Rate: Laboratory Tests 08/09/21 22:15: White Blood Count 9.6 Blood Pressure / Mean: Laboratory Tests 08/09/21 22:15: Creatinine 0.60, Platelet Count 199, Total Bilirubin 0.1 Results/Orders Lab Results Laboratory Tests Test 08/09/21 22:15 08/09/21 22:22 08/09/21 22:31 08/09/21 22:35 Range/Units White Blood Count 9.6 4.3-11.0 10^3/uL Red Blood Count 4.74 3.80-5.11 10^6/uL Hemoglobin 13.1 11.5-16.0 g/dL Hematocrit 40 35-52 % Mean Corpuscular Volume 84 80-99 fL Mean Corpuscular Hemoglobin 28 25-34 pg Mean Corpuscular Hemoglobin Concent 33 32-36 g/dL Red Cell Distribution Width 13.7 10.0-14.5 % Platelet Count 199 130-400 10^3/uL Mean Platelet Volume 10.0 9.0-12.2 fL Immature Granulocyte % (Auto) 1 % Neutrophils (%) (Auto) 69 42-75 % Lymphocytes (%) (Auto) 22 12-44 % Monocytes (%) (Auto) 7 0-12 % Eosinophils (%) (Auto) 1 0-10 % Basophils (%) (Auto) 0 0-10 % Neutrophils # (Auto) 6.6 1.8-7.8 10^3/uL Lymphocytes # (Auto) 2.1 1.0-4.0 10^3/uL Monocytes # (Auto) 0.6 0.0-1.0 10^3/uL Eosinophils # (Auto) 0.1 0.0-0.3 10^3/uL Basophils # (Auto) 0.0 0.0-0.1 10^3/uL Immature Granulocyte # (Auto) 0.1 0.0-0.1 10^3/uL Sodium Level 138 135-145 MMOL/L Potassium Level 3.7 3.6-5.0 MMOL/L Chloride Level 109 H 98-107 MMOL/L Carbon Dioxide Level 18 L 21-32 MMOL/L Anion Gap 11 5-14 MMOL/L Blood Urea Nitrogen 10 7-18 MG/DL Creatinine 0.60 0.60-1.30 MG/DL Estimat Glomerular Filtration Rate 114 BUN/Creatinine Ratio 17 Glucose Level 82 70-105 MG/DL Calcium Level 9.3 8.5-10.1 MG/DL Corrected Calcium 9.5 8.5-10.1 MG/DL Total Bilirubin 0.1 0.1-1.0 MG/DL Aspartate Amino Transf (AST/SGOT) 12 5-34 U/L Alanine Aminotransferase (ALT/SGPT) 20 0-55 U/L Alkaline Phosphatase 48 40-136 U/L Total Protein 6.7 6.4-8.2 GM/DL Albumin 3.7 3.2-4.5 GM/DL Serum Test, Qualitative POSITIVE NEGATIVE Salicylates Level < 5.0 L 5.0-20.0 MG/DL Acetaminophen Level < 10 L 10-30 UG/ML Serum Alcohol < 10 <10 MG/DL Glucometer 82 70-110 MG/DL SARS-CoV-2 RNA (RT-PCR) Not Detected Not Detecte Urine Color YELLOW Urine Clarity CLEAR Urine pH 7.0 5-9 Urine Specific [place] <=1.005 1.016-1.022 Urine Protein NEGATIVE NEGATIVE Urine Glucose (UA) NEGATIVE NEGATIVE Urine Ketones NEGATIVE NEGATIVE Urine Nitrite NEGATIVE NEGATIVE Urine Bilirubin NEGATIVE NEGATIVE Urine Urobilinogen 0.2 < = 1.0 MG/DL Urine Leukocyte Esterase NEGATIVE NEGATIVE Urine RBC (Auto) TRACE-I H NEGATIVE Urine RBC NONE /HPF Urine WBC NONE /HPF Urine Crystals NONE /LPF Urine Bacteria NEGATIVE /HPF Urine Casts NONE /LPF Urine Mucus NEGATIVE /LPF Urine Culture Indicated NO Urine Opiates Screen NEGATIVE NEGATIVE Urine Oxycodone Screen NEGATIVE NEGATIVE Urine Methadone Screen NEGATIVE NEGATIVE Urine Propoxyphene Screen NEGATIVE NEGATIVE Urine Barbiturates Screen NEGATIVE NEGATIVE Ur Tricyclic Antidepressants Screen NEGATIVE NEGATIVE Urine Phencyclidine Screen NEGATIVE NEGATIVE Urine Amphetamines Screen NEGATIVE NEGATIVE Urine Methamphetamines Screen NEGATIVE NEGATIVE Urine Benzodiazepines Screen NEGATIVE NEGATIVE Urine Cocaine Screen NEGATIVE NEGATIVE Urine Cannabinoids Screen NEGATIVE NEGATIVE Test 08/09/21 23:39 Range/Units Glucometer 95 70-110 MG/DL My Orders Orders - ALEXYS AVALOS Accucheck Stat ONCE (08/09/21 23:33) Vital Signs/I&O 08/09/21 22:16 Temp 36.8 Pulse 75 Resp 16 B/P (MAP) 131/64 (86) Pulse Ox 97 O2 Delivery Room Air Capillary Refill : Progress Note #1: Time: 22:24 Progress Note Get some labs and get an IV started. Will observe her for a little bit. Her blood sugar presently is 82. Urinalysis. Progress Note #2: Time: 00:05 Progress Note Repeat blood glucose has risen to 95. Will allow her to go home and observe with her . Suspect a viral syndrome or could be related to . ECG Initial ECG Impression Date: Aug 09, 2021 Initial ECG Impression Time: 22:26 Initial ECG Rate: 65 Initial ECG Rhythm: Normal Sinus Initial ECG Intervals: Normal Initial ECG Impression: Normal Comment Normal sinus rhythm without clinically relevant ST elevation or depression. Diagnostic Imaging Diagonstic Imaging: Xray Plain Films/CT/US/NM/MRI: chest Comments [facility], [place] NAME: AGUSTIN ANDRES [facility] REC#: [id number] PT STATUS: REG ER : 1985 PHYSICIAN: DENISE FREDERICK APRN ADMIT DATE: 08/09/21/ER Signed Date of Exam:08/09/21 CHEST 1 VIEW, AP/PA ONLY INDICATION: chest pain-16 weeks preg COMPARISON: 12/20/2020 FINDINGS: Single frontal view of the chest demonstrates normal heart size and pulmonary vascularity. The lungs are well aerated and clear. No large pleural effusion or pneumothorax is seen. The visualized osseous structures show no acute abnormalities. IMPRESSION: 1. No acute cardiopulmonary process. Dictated by: Dictated on workstation # [id number] Dict: 08/09/21 2344 Trans: 08/09/21 [address] [facility] [id number] Interpreted by: BARRY ZAPATA MD Electronically signed by: BARRY ZAPATA MD 08/09/212350 Reviewed: Reviewed by Me Departure Impression Primary Impression: Labile blood glucose Additional Impressions: Qualified Codes: Z34.90 - Encounter for supervision of normal , unspecified, unspecified trimester Viral syndrome Disposition: HOME, SELF-CARE Condition: Stable Departure-Patient Inst. Decision time for Depature: 00:06 Referrals: LLOYD BANERJEE APRN (PCP) Primary Care Physician SUPRIYA RODRIGUEZ (Family) Primary Care Physician Patient Instructions: HYPOGLYCEMIA, Viral Syndrome (DC) Add. Discharge Instructions: Drink plenty of fluids. Hold your diabetic medications until your primary care doctor tells you to resume them. Return to the ER for persistent low blood sugar or other worrisome symptoms. Either your or possibly a virus is contributing to your blood sugars being low. I suspect this should improve spontaneously over the next week. Ondansetron 1 tablet under the tongue every 6 hours as necessary for nausea or vomiting. Follow-up with your supplemental manager. Scripts Ondansetron (Ondansetron Odt) 4 Mg Tab.rapdis 4 MG PO Q6H PRN for NAUSEA/VOMITING, #8 TAB 0 Refills Prov: ALEXYS AVALOS 08/10/21 ALEXYS AVALOS Aug 09, 2021 22:24
[2021-08-09 22:28] LABS: BASOPHILS % (AUTO) 0 % (0-10); EOSINOPHILS # (AUTO) 0.1 10^3/uL (0.0-0.3); EOSINOPHILS % (AUTO) 1 % (0-10); HEMATOCRIT 40 % (35-52); HEMOGLOBIN 13.1 g/dL (11.5-16.0); LYMPHOCYTES # (AUTO) 2.1 10^3/uL (1.0-4.0); LYMPHOCYTES % (AUTO) 22 % (12-44); MEAN CORPUSCULAR HEMOGLOBIN 28 pg (25-34); MEAN CORPUSCULAR HGB CONC 33 g/dL (32-36); MEAN CORPUSCULAR VOLUME 84 fL (80-99); MONOCYTES # (AUTO) 0.6 10^3/uL (0.0-1.0); MONOCYTES % (AUTO) 7 % (0-12); NEUTROPHILS # (AUTO) 6.6 10^3/uL (1.8-7.8); NEUTROPHILS % (AUTO) 69 % (42-75); PLATELET COUNT 199 10^3/uL (130-400); WHITE BLOOD COUNT 9.6 10^3/uL (4.3-11.0)
[2021-08-09 22:37] LABS: ALBUMIN 3.7 GM/DL (3.2-4.5); CHLORIDE 109 MMOL/L (98-107); POTASSIUM 3.7 MMOL/L (3.6-5.0); SODIUM 138 MMOL/L (135-145)
[2021-08-09 22:39] LABS: CALCIUM 9.3 MG/DL (8.5-10.1)
[2021-08-09 22:39] LABS: BILIRUBIN,URINE NEGATIVE (NEGATIVE); CLARITY,URINE CLEAR; COLOR,URINE YELLOW; GLUCOSE, URINE (UA) NEGATIVE (NEGATIVE); KETONES,URINE NEGATIVE (NEGATIVE); LEUKOCYTE ESTERASE ,URINE NEGATIVE (NEGATIVE); NITRITE,URINE NEGATIVE (NEGATIVE); PROTEIN,URINE NEGATIVE (NEGATIVE)
[2021-08-09 22:40] LABS: GLUCOSE 82 MG/DL (70-105); TOTAL PROTEIN 6.7 GM/DL (6.4-8.2)
[2021-08-09 22:41] LABS: CARBON DIOXIDE 18 MMOL/L (21-32)
[2021-08-09 22:42] LABS: BILIRUBIN,TOTAL 0.1 MG/DL (0.1-1.0)
[2021-08-09 22:44] LABS: ALKALINE PHOSPHATASE 48 U/L (40-136); GFR ESTIMATED 114
[2021-08-09 22:45] LABS: BUN/CREATININE RATIO 17
[2021-08-09 22:46] LABS: BACTERIA,URINE NEGATIVE /HPF
[2021-08-09 22:46] LABS: ACETAMINOPHEN < 10 UG/ML (10-30); SALICYLATE < 5.0 MG/DL (5.0-20.0)
[2021-08-09 22:47] LABS: ALANINE AMINOTRANSFERASE 20 U/L (0-55)
[2021-08-09] MEDS: LACTATED RINGERS 1,000 ML IV SCH ×2 (22:49→23:42)
[2021-08-09 22:52] LABS: AMPHETAMINE SCREEN, URINE NEGATIVE (NEGATIVE); BARBITURATE SCREEN URINE NEGATIVE (NEGATIVE); BENZODIAZEPINES SCREEN URINE NEGATIVE (NEGATIVE); CANNABINOID SCREEN, URINE NEGATIVE (NEGATIVE); COCAINE SCREEN URINE NEGATIVE (NEGATIVE); METHADONE STAT NEGATIVE (NEGATIVE); METHAMPHETAMINE SCREEN URINE S NEGATIVE (NEGATIVE); OPIATE SCREEN URINE NEGATIVE (NEGATIVE); OXYCODONE STAT NEGATIVE (NEGATIVE); PROPOXYPHENE STAT NEGATIVE (NEGATIVE); TRICYCLIC ANTIDEPRESSANTS SCRE NEGATIVE (NEGATIVE)
--- NOTE | 2021-08-09 23:46 | Diagnostic Imaging Report ---
INDICATION: chest pain-16 weeks preg COMPARISON: 12/20/2020 FINDINGS: Single frontal view of the chest demonstrates normal heart size and pulmonary vascularity. The lungs are well aerated and clear. No large pleural effusion or pneumothorax is seen. The visualized osseous structures show no acute abnormalities. IMPRESSION: 1. No acute cardiopulmonary process. Dictated by: Dictated on workstation # [id number]
[2021-08-10] MEDS ORDERED: ONDA4TAB11 PO (00:18)
[2021-08-10 00:24] VITALS: BP 102/51
== END 2021-08-10 00:14 | disposition home or self-care (01) ==
LOC: EDUNIT# 22:16 → ER 22:19
DX: O99.814 Abnormal glucose complicating childbirth (principal); Z3A.16 16 weeks gestation of pregnancy
CPT/HCPCS: 71045; 80053; 80306; 81000; 82947; 84703; 85025; 87636; 93005; 99284; G0480 ×3; 36415; 80320; 80329

== ENCOUNTER 2021-08-19 21:09 | Emergency (ER) | payer MEDICARE, MEDICAID ==
[~2021-08-19] VITALS: Ht 154.9 cm; Wt 93.1 kg
[~2021-08-19 21:09] MED LIST changes: +ONDA4TAB11 PO
[2021-08-19] MEDS ORDERED: ACETAMINOPHEN 500 MG TAB (TYLENOL) PO ONE (21:45)
[2021-08-19] MEDS ORDERED: ONDANSETRON 4 MG/2 ML (SDV) Z0FRAN IVP ONE (21:45)
[2021-08-19] MEDS ORDERED: NS IV 1000 ML 1,000 ML IV SCH (21:45)
--- NOTE | 2021-08-19 21:48 | ED General ---
General Chief Complaint: Glucose Problems Stated Complaint: NAUSEA/TROUBLE BREATHING/DIZZY/WEAK/BODY ACHES Source of Information: Patient Exam Limitations: No Limitations History of Present Illness Date Seen by Provider: Aug 19, 2021 Time Seen by Provider: 21:32 Initial Comments Patient ER by private conveyance from home with chief complaint that for the past couple weeks has been having headache nausea and urinary frequency and unpredictably high to 220-230 blood sugars down to 60-70. She is type II diabetic diet controlled. She was on Metformin was taken off of it recently. She is a at 17 weeks and 2 days by LMP. She is under the care of OB at [place] [facility] endocrinology. She is not on anything for her diabetes. She says her sugars have been very labile making her very irritable and weak with body aches. She was here for the same problem last week and had normal blood sugars laboratory work-up and uneventful stay. She had her Metformin stopped. She is not using insulin. She says within 20 minutes her blood sugar will go from 220 down to 60 without any insulin or medications. She has had a cough occasionally productive. COVID-19 was negative last week. No fevers or chills. Patient endorses fruity smelling breath as well as urine. She says until she was she was diet controlled and just on Metformin recently. Allergies and Home Medications Allergies Coded Allergies: aspirin (Verified Allergy, Unknown, 01/18/06) clozapine (Verified Allergy, Unknown, tachycardia and high fever, 06/11/17) cyclobenzaprine (Verified Allergy, Unknown, tachycardia and high fever, 06/11/17) shellfish derived (Unverified Allergy, Unknown, Hives, 12/14/20) Uncoded Allergies: SEAFOOD (Allergy, Unknown, 01/18/06) Patient Home Medication List Home Medication List Reviewed: Yes Albuterol Sulfate (Proair Hfa) 1 Puff Puff, 2 PUFF IH BID, (Reported) Entered as Reported by: DAYSI HOOVER on 06/11/17 1130 Docusate Sodium (Dok) 100 Mg Capsule, 100 MG PO BID PRN for CONSTIPATION-1ST LINE Prescribed by: ABBY MARTINEZ on 12/15/20 0814 Hydrocodone Bit/Acetaminophen (HYDROcodone/APAP 5 MG/325 MG TAB) 1 Tab Tab, 1-2 EA PO Q6HR PRN for PAIN-MODERATE (5-7) Prescribed by: ABBY MARTINEZ on 12/15/20 08 Ibuprofen (Ibu) 600 Mg Tablet, 600 MG PO Q6H Prescribed by: ABBY MARTINEZ on 12/15/20 08 Metformin HCl (Metformin HCl) 500 Mg Tablet, 500 MG PO BID, (Reported) Entered as Reported by: DAYSI HOOVER on 06/11/17 1125 Omeprazole (Omeprazole) 20 Mg Tablet.dr, 20 MG PO DAILY, (Reported) Entered as Reported by: KARINA LUCERO on 12/13/202356 Ondansetron (Ondansetron Odt) 4 Mg Tab.rapdis, 4 MG PO Q6H PRN for NAUSEA/VOMITING Prescribed by: ALEXYS AVALOS on 08/10/21 0018 Quetiapine Fumarate (Seroquel) 100 Mg Tablet, 100 MG PO DAILY, (Reported) Entered as Reported by: KARINA LUCERO on 12/13/202356 Sulfamethoxazole/Trimethoprim (Bactrim Ds Tablet) 1 Each Tablet, 1 EACH PO BID Prescribed by: DENISE FREDERICK on 12/20/20 1323 Review of Systems Review of Systems Constitutional: No chills, No fever; malaise EENTM: No ear discharge, No ear pain Respiratory: No cough, No short of breath Cardiovascular: No chest pain, No palpitations Gastrointestinal: No abdominal pain; nausea, vomiting Genitourinary: No discharge, No dysuria; frequency Musculoskeletal: No back pain, No joint pain Psychiatric/Neurological: Denies Anxiety, Denies Depressed All Other Systems Reviewed Negative Unless Noted: Yes Past Qqrxnyy-Ixoanh-Sucjjw Hx Patient Social History Tobacco Use?: Yes Smoking Status: Current Everyday Smoker Smokeless Tobacco Frequency: Current Everyday User (Half pack per day) Substance use?: No Alcohol Use?: No Immunizations Up To Date Tetanus Booster (TDap): Unknown Seasonal Allergies Seasonal Allergies: Yes (mild) Past Medical History Surgeries: Yes (pilonidal cyst removal) Section Respiratory: Yes COPD Cardiac: Yes Hypertension Neurological: No Reproductive Disorders: No Genitourinary: No Gastrointestinal: No Musculoskeletal: No Endocrine: Yes Diabetes, Non-Insulin dep Cancer: No Psychosocial: Yes PTSD, Bipolar Integumentary: No Blood Disorders: No Adverse Reaction/Blood Tranf: No Physical Exam Vital Signs Vital Signs - First Documented 08/19/21 21:20 Temp 36.2 Pulse 90 Resp 20 B/P (MAP) 154/96 (115) Pulse Ox 99 O2 Delivery Room Air Capillary Refill : Height, Weight, BMI Height: 5'6.00" Weight: 230lbs. 0.0oz. 104.344127xy; 39.00 BMI Method:Stated General Appearance: No Apparent Distress, WD/WN, Anxious Eyes: Bilateral Eye Normal Inspection, Bilateral Eye PERRL, Bilateral Eye EOMI HEENT: PERRL/EOMI, TMs Normal, Normal ENT Inspection, Pharynx Normal, Moist Mucous Membranes Neck: Full Range of Motion, Normal Inspection, Non Tender, Supple Respiratory: Lungs Clear, Normal Breath Sounds, No Accessory Muscle Use, No Respiratory Distress Cardiovascular: Regular Rate, Rhythm, No Edema, Normal Peripheral Pulses Gastrointestinal: Normal Bowel Sounds, Non Tender, Soft Extremity: Normal Capillary Refill, Normal Inspection, No Pedal Edema Neurologic/Psychiatric: Alert, Oriented x3, No Motor/Sensory Deficits, Normal Mood/Affect Skin: Normal Color, Warm/Dry Progress/Results/Core Measures Suspected Sepsis SIRS Temperature: Pulse: Respiratory Rate: Laboratory Tests 08/19/21 21:54: White Blood Count 9.5 Blood Pressure / Mean: Laboratory Tests 08/19/21 21:54: Creatinine 0.64, Platelet Count 209, Total Bilirubin 0.1 08/19/21 21:55: INR Comment 1.0 Results/Orders Lab Results Laboratory Tests Test 08/19/21 21:39 08/19/21 21:45 08/19/21 21:54 08/19/21 21:55 Range/Units Glucometer 103 70-110 MG/DL Urine Color YELLOW Urine Clarity CLEAR Urine pH 7.0 5-9 Urine Specific [place] 1.010 L 1.016-1.022 Urine Protein NEGATIVE NEGATIVE Urine Glucose (UA) NEGATIVE NEGATIVE Urine Ketones NEGATIVE NEGATIVE Urine Nitrite NEGATIVE NEGATIVE Urine Bilirubin NEGATIVE NEGATIVE Urine Urobilinogen 0.2 < = 1.0 MG/DL Urine Leukocyte Esterase NEGATIVE NEGATIVE Urine RBC (Auto) NEGATIVE NEGATIVE Urine RBC NONE /HPF Urine WBC NONE /HPF Urine Squamous Epithelial Cells 0-2 /HPF Urine Renal Epithelial Cells NONE /HPF Urine Crystals NONE /LPF Urine Bacteria NEGATIVE /HPF Urine Casts NONE /LPF Urine Mucus NEGATIVE /LPF Urine Culture Indicated NO White Blood Count 9.5 4.3-11.0 10^3/uL Red Blood Count 4.52 3.80-5.11 10^6/uL Hemoglobin 12.5 11.5-16.0 g/dL Hematocrit 38 35-52 % Mean Corpuscular Volume 85 80-99 fL Mean Corpuscular Hemoglobin 28 25-34 pg Mean Corpuscular Hemoglobin Concent 33 32-36 g/dL Red Cell Distribution Width 13.6 10.0-14.5 % Platelet Count 209 130-400 10^3/uL Mean Platelet Volume 10.1 9.0-12.2 fL Immature Granulocyte % (Auto) 1 % Neutrophils (%) (Auto) 72 42-75 % Lymphocytes (%) (Auto) 20 12-44 % Monocytes (%) (Auto) 7 0-12 % Eosinophils (%) (Auto) 1 0-10 % Basophils (%) (Auto) 0 0-10 % Neutrophils # (Auto) 6.8 1.8-7.8 10^3/uL Lymphocytes # (Auto) 1.9 1.0-4.0 10^3/uL Monocytes # (Auto) 0.6 0.0-1.0 10^3/uL Eosinophils # (Auto) 0.1 0.0-0.3 10^3/uL Basophils # (Auto) 0.0 0.0-0.1 10^3/uL Immature Granulocyte # (Auto) 0.1 0.0-0.1 10^3/uL Sodium Level 139 135-145 MMOL/L Potassium Level 3.4 L 3.6-5.0 MMOL/L Chloride Level 108 H 98-107 MMOL/L Carbon Dioxide Level 19 L 21-32 MMOL/L Anion Gap 12 5-14 MMOL/L Blood Urea Nitrogen 7 7-18 MG/DL Creatinine 0.64 0.60-1.30 MG/DL Estimat Glomerular Filtration Rate 106 BUN/Creatinine Ratio 11 Glucose Level 91 70-105 MG/DL Calcium Level 8.9 8.5-10.1 MG/DL Corrected Calcium 9.1 8.5-10.1 MG/DL Total Bilirubin 0.1 0.1-1.0 MG/DL Aspartate Amino Transf (AST/SGOT) 12 5-34 U/L Alanine Aminotransferase (ALT/SGPT) 11 0-55 U/L Alkaline Phosphatase 52 40-136 U/L C-Reactive Protein High Sensitivity 1.72 H 0.00-0.50 MG/DL Total Protein 6.9 6.4-8.2 GM/DL Albumin 3.7 3.2-4.5 GM/DL Beta-Hydroxybutyrate (Chem panel) 0.07 0.00-0.27 MMOL/L Prothrombin Time 13.2 12.2-14.7 SEC INR Comment 1.0 0.8-1.4 Fibrinogen 674 H 221-496 MG/DL My Orders Orders - ALEXYS AVALOS Cbc With Automated Diff (08/19/21 21:43) Comprehensive Metabolic Panel (08/19/21 21:43) Hs C Reactive Protein (08/19/21 21:43) Fibrinogen (08/19/21 21:43) Ua Culture If Indicated (08/19/21 21:43) Beta Hydroxybutyrate (08/19/21 21:43) Protime With Inr (08/19/21 21:43) Ondansetron Injection (Zofran Injectio (08/19/21 21:45) Acetaminophen Tablet (Tylenol Tablet) (08/19/21 21:45) Ed Iv/Invasive Line Start (08/19/21 21:43) Ns Iv 1000 Ml (Sodium Chloride 0.9%) (08/19/21 21:45) Urine Bedside (08/19/21 22:23) Accucheck Stat ONCE (08/19/21 23:51) Medications Given in ED Current Medications Medications Dose Ordered Sig/Chelsy Route Start Time Stop Time Status Last Admin Dose Admin Acetaminophen 1,000 mg ONCE ONCE PO 08/19/21 21:45 08/19/21 21:46 DC 08/19/21 22:11 1,000 MG Ondansetron HCl 8 mg ONCE ONCE IVP 08/19/21 21:45 08/19/21 21:46 DC 08/19/21 22:11 8 MG Vital Signs/I&O 08/19/21 08/19/21 21:20 21:30 Temp 36.2 36.7 Pulse 90 90 Resp 20 20 B/P (MAP) 154/96 (115) 154/96 Pulse Ox 99 O2 Delivery Room Air Capillary Refill : Progress Note #1: Time: 22:18 Progress Note Some of the claims of hurting breath could not be substantiated. Her blood sugar is normal today. There is no ketones in her urine. We will give her some Zofran check some fluids. We offered to do a chest x-ray which she declined because of the . We we will give her a liter of fluids and check back on her. The patient vital signs are completely aseptic. She declined a repeat swab for flu and Covid which I think is reasonable since she is not really having normal presentation consistent with infection. Her history might suggest that but she had a negative swab last week with the same symptoms. She states she has protein in her urine from previous urinalyses. She is a little bit early for preeclampsia and is not hypertensive. Progress Note #2: Time: 23:57 Progress Note Patient sleeping. No visual disturbances or significant headache. She says she feels a little itchy but does not anything for it. Told her she could take some Benadryl. Her blood pressure is significant provement in the 1 teens for the last couple hours. She states she has a history of proteinuria so it is very possible she could be experiencing gestational hypertension or even eventually develop preeclampsia. She has a OB provider and we recommended that she follow- up with them. We will provide her with some Zofran and encourage her to go home if her repeat Accu-Chek is normal. Patient is okay with this plan. Departure Impression Primary Impression: Type 2 diabetes mellitus Qualified Codes: E11.9 - Type 2 diabetes mellitus without complications Additional Impression: Labile blood glucose Disposition: 01 HOME, SELF-CARE Condition: Stable Departure-Patient Inst. Decision time for Depature: 23:58 Referrals: LLOYD BANERJEE APRN (PCP) Primary Care Physician SUPRIYA RODRIGUEZ (Family) Primary Care Physician Patient Instructions: Type 2 Diabetes (DC), Hyperglycemia, Adult (DC) Add. Discharge Instructions: Keep track of your glucose and take it with you to your OB provider. Zofran 1 tablet every 6 hours as necessary for nausea and/or vomiting. All discharge instructions reviewed with patient and/or family. Voiced understanding. Scripts Ondansetron (Ondansetron Odt) 4 Mg Tab.rapdis 4 MG PO Q6H PRN for NAUSEA/VOMITING, #12 TAB 0 Refills Prov: ALEXYS AVALOS 08/19/21 ALEXYS AVALOS Aug 19, 2021 21:48
[2021-08-19 21:52] LABS: BILIRUBIN,URINE NEGATIVE (NEGATIVE); CLARITY,URINE CLEAR; COLOR,URINE YELLOW; GLUCOSE, URINE (UA) NEGATIVE (NEGATIVE); KETONES,URINE NEGATIVE (NEGATIVE); LEUKOCYTE ESTERASE ,URINE NEGATIVE (NEGATIVE); NITRITE,URINE NEGATIVE (NEGATIVE); PROTEIN,URINE NEGATIVE (NEGATIVE)
[2021-08-19 21:59] LABS: BACTERIA,URINE NEGATIVE /HPF; SQUAMOUS EPITHELIAL CELL,UR 0-2 /HPF
[2021-08-19 22:05] LABS: BASOPHILS % (AUTO) 0 % (0-10); EOSINOPHILS # (AUTO) 0.1 10^3/uL (0.0-0.3); EOSINOPHILS % (AUTO) 1 % (0-10); HEMATOCRIT 38 % (35-52); HEMOGLOBIN 12.5 g/dL (11.5-16.0); LYMPHOCYTES # (AUTO) 1.9 10^3/uL (1.0-4.0); LYMPHOCYTES % (AUTO) 20 % (12-44); MEAN CORPUSCULAR HEMOGLOBIN 28 pg (25-34); MEAN CORPUSCULAR HGB CONC 33 g/dL (32-36); MEAN CORPUSCULAR VOLUME 85 fL (80-99); MEAN PLATELET VOLUME 10.1 fL (9.0-12.2); MONOCYTES # (AUTO) 0.6 10^3/uL (0.0-1.0); MONOCYTES % (AUTO) 7 % (0-12); NEUTROPHILS # (AUTO) 6.8 10^3/uL (1.8-7.8); NEUTROPHILS % (AUTO) 72 % (42-75); PLATELET COUNT 209 10^3/uL (130-400); WHITE BLOOD COUNT 9.5 10^3/uL (4.3-11.0)
[2021-08-19 22:14] LABS: ALBUMIN 3.7 GM/DL (3.2-4.5); POTASSIUM 3.4 MMOL/L (3.6-5.0)
[2021-08-19 22:15] LABS: CALCIUM 8.9 MG/DL (8.5-10.1)
[2021-08-19 22:16] LABS: TOTAL PROTEIN 6.9 GM/DL (6.4-8.2)
[2021-08-19 22:18] LABS: BILIRUBIN,TOTAL 0.1 MG/DL (0.1-1.0)
[2021-08-19 22:18] LABS: PROTHROMBIN TIME PATIENT 13.2 SEC (12.2-14.7)
[2021-08-19 22:20] LABS: CREATININE SERUM 0.64 MG/DL (0.60-1.30)
[2021-08-19] MEDS ORDERED: ONDA4TAB11 PO (23:59)
[2021-08-20 00:01] VITALS: BP 124/82
[2021-08-20] MEDS ORDERED: RX-ONDANSETRON 4 MG ODT (ZOFRAN) PPK #4 PO STA (00:01)
== END 2021-08-20 00:10 | disposition home or self-care (01) ==
LOC: EDUNIT# 21:09 → ER 21:13
DX: E11.9 Type 2 diabetes mellitus without complications (principal); J44.9 Chronic obstructive pulmonary disease, unspecified; I10 Essential (primary) hypertension; F31.9 Bipolar disorder, unspecified; F17.210 Nicotine dependence, cigarettes, uncomplicated; Z79.84 Long term (current) use of oral hypoglycemic drugs; Z79.899 Other long term (current) drug therapy
CPT/HCPCS: 36415; 80053; 81000; 82010; 82947; 84703; 85025; 85384; 85610; 86141; 96374

== ENCOUNTER → 2022-10-08 | Outpatient (CLI) | payer MEDICARE, MEDICAID ==
[~2022-10-08] MED LIST changes: +ALBU8.5H6 IH; +OMEP20TA56 PO; -OMEP20TA7 PO; -RT-ALBUINH IH
== END ==
LOC: CARD 13:58
PROVIDERS: ATTEND Pediatrics
DX: I10 Essential (primary) hypertension (principal)
CPT/HCPCS: 93306

== ENCOUNTER → 2023-02-07 | Outpatient (CLI) | payer MEDICAID, MEDICARE ==
[~2023-02-07] MED LIST changes: -BENZ1TAB6 PO; +BENZ1TAB74 PO
== END ==
LOC: WOUNDCARE 09:29
PROVIDERS: ATTEND Family Medicine
DX: T81.31XA Disruption of external operation (surgical) wound, not elsewhere classified, initial encounter (principal); L02.211 Cutaneous abscess of abdominal wall; O75.4 Other complications of obstetric surgery and procedures; E66.01 Morbid (severe) obesity due to excess calories; Z68.39 Body mass index [BMI] 39.0-39.9, adult; E11.622 Type 2 diabetes mellitus with other skin ulcer; F17.210 Nicotine dependence, cigarettes, uncomplicated
CPT/HCPCS: A6212; A6266; G0463; 99213

== ENCOUNTER → 2023-02-14 | Outpatient (CLI) | payer MEDICARE, MEDICAID | LOC: WOUNDCARE 08:32 | PROVIDERS: ATTEND Family Medicine | DX: T81.31XA Disruption of external operation (surgical) wound, not elsewhere classified, initial encounter (principal); L02.211 Cutaneous abscess of abdominal wall; O75.4 Other complications of obstetric surgery and procedures; E66.01 Morbid (severe) obesity due to excess calories; E11.622 Type 2 diabetes mellitus with other skin ulcer; E11.52 Type 2 diabetes mellitus with diabetic peripheral angiopathy with gangrene; F17.210 Nicotine dependence, cigarettes, uncomplicated; Z68.39 Body mass index [BMI] 39.0-39.9, adult | CPT/HCPCS: 97605 ==

== ENCOUNTER → 2023-02-21 | Outpatient (CLI) | payer MEDICARE, MEDICAID | LOC: WOUNDCARE 08:25 | PROVIDERS: ATTEND Family Medicine | DX: T81.31XA Disruption of external operation (surgical) wound, not elsewhere classified, initial encounter (principal); L02.211 Cutaneous abscess of abdominal wall; O75.4 Other complications of obstetric surgery and procedures; E66.01 Morbid (severe) obesity due to excess calories; E11.622 Type 2 diabetes mellitus with other skin ulcer; F17.210 Nicotine dependence, cigarettes, uncomplicated; B96.5 Pseudomonas (aeruginosa) (mallei) (pseudomallei) as the cause of diseases classified elsewhere; B95.2 Enterococcus as the cause of diseases classified elsewhere; E11.52 Type 2 diabetes mellitus with diabetic peripheral angiopathy with gangrene; Z3A.00 Weeks of gestation of pregnancy not specified | CPT/HCPCS: 11042 ==

== ENCOUNTER → 2023-03-04 | Outpatient (CLI) | payer MEDICARE, MEDICAID ==
[2023-03-04 09:25] LABS: BASOPHILS % (AUTO) 1 % (0-10); EOSINOPHILS # (AUTO) 0.2 10^3/uL (0.0-0.3); EOSINOPHILS % (AUTO) 3 % (0-10); HEMATOCRIT 41 % (35-52); HEMOGLOBIN 12.7 g/dL (11.5-16.0); LYMPHOCYTES # (AUTO) 1.7 10^3/uL (1.0-4.0); LYMPHOCYTES % (AUTO) 24 % (12-44); MEAN CORPUSCULAR HEMOGLOBIN 25 pg (25-34); MEAN CORPUSCULAR HGB CONC 31 g/dL (32-36); MEAN CORPUSCULAR VOLUME 82 fL (80-99); MEAN PLATELET VOLUME 10.1 fL (9.0-12.2); MONOCYTES # (AUTO) 0.5 10^3/uL (0.0-1.0); MONOCYTES % (AUTO) 7 % (0-12); NEUTROPHILS # (AUTO) 4.6 10^3/uL (1.8-7.8); NEUTROPHILS % (AUTO) 65 % (42-75); PLATELET COUNT 291 10^3/uL (130-400)
[2023-03-04 10:34] LABS: ERYTHROCYTE SEDIMENTATION RATE 23 MM/HR (0-20)
== END ==
LOC: WOUNDCARE 08:42
PROVIDERS: ATTEND Family Medicine
DX: T81.31XA Disruption of external operation (surgical) wound, not elsewhere classified, initial encounter (principal); L02.211 Cutaneous abscess of abdominal wall; O75.4 Other complications of obstetric surgery and procedures; E66.01 Morbid (severe) obesity due to excess calories; E11.622 Type 2 diabetes mellitus with other skin ulcer; F17.210 Nicotine dependence, cigarettes, uncomplicated; B96.5 Pseudomonas (aeruginosa) (mallei) (pseudomallei) as the cause of diseases classified elsewhere; B95.2 Enterococcus as the cause of diseases classified elsewhere; E11.52 Type 2 diabetes mellitus with diabetic peripheral angiopathy with gangrene
CPT/HCPCS: 36415; 83036; 85025; 85652; 86141; 99213

== ENCOUNTER → 2023-03-07 | Outpatient (CLI) | payer MEDICARE, MEDICAID ==
[~2023-03-07] MED LIST changes: +CATHETER FLUSH 10 ML SYR IV PRN; +HOLD METFORMIN - RECEIVED CONTRAST 20 ML VIAL IV SCH; +IOHEXOL 350 MG/ML 100 ML (OMNIPAQUE 350) VIAL IV ONE; +NS 100 ML (IVPB) BAG IV ONE
--- NOTE | 2023-03-07 10:15 | Diagnostic Imaging Report ---
PROCEDURE: CT abdomen and pelvis with contrast. TECHNIQUE: Multiple contiguous axial images were obtained through the abdomen and pelvis after administration of intravenous contrast. Auto Exposure Controls were utilized during the CT exam to meet ALARA standards for radiation dose reduction. All CT scans use one or more of the following dose optimizing techniques: automated exposure control, MA and/or KvP adjustment based on patient size and exam type or iterative reconstruction. DATE: March 07, 2023. COMPARISON: CT chest, abdomen and pelvis December 20, 2020. INDICATION: 37-year-old female, 8 weeks following . Open wound and infection. Nausea and diarrhea. FINDINGS: The visualized portions of the lung bases are clear. The heart is not enlarged. There is no identified pericardial effusion. The liver is unremarkable in size and contour. There is a 6 mm low-attenuation lesion in the right lobe of liver on axial image 31, too small to characterize. There are additional 3 mm low-attenuation lesions in the liver too small to characterize but the main, right, and left portal veins are patent. The gallbladder is unremarkable. There is no intrahepatic or extrahepatic bile duct dilation. The main pancreatic duct is not abnormally dilated. Unremarkable appearance of the pancreatic parenchyma. The spleen is normal in size. The adrenal glands are unremarkable. Unremarkable appearance of the renal parenchyma. The urinary collecting systems are not distended. The urinary bladder is unremarkable. There is no evidence of acute appendicitis. There is no free intraperitoneal air. There is no drainable fluid collection. There is no free fluid in the abdomen or pelvis. There is no identified abnormally enlarged lymph node in the abdomen or pelvis meeting CT size criteria for adenopathy. There is stranding in the subcutaneous fat anterior abdominal wall at the level of the lower abdomen/pelvis which may relate to site of . There is no identified acute bony abnormality. There are degenerative changes of the thoracic spine. IMPRESSION: CT ABDOMEN AND PELVIS. 1. Nonspecific inflammatory stranding of the lower anterior abdominal wall/pelvis which may be at site of . This is substantially improved in appearance since December 20, 2020. 2. No identified drainable fluid collection or abscess. 3. No otherwise identified acute abnormality in the abdomen or pelvis. Dictated by: Dictated on workstation # [id number]
== END ==
LOC: RAD 08:42
PROVIDERS: ATTEND Family Medicine
DX: T81.31XA Disruption of external operation (surgical) wound, not elsewhere classified, initial encounter (principal); L02.211 Cutaneous abscess of abdominal wall; O75.4 Other complications of obstetric surgery and procedures; E66.01 Morbid (severe) obesity due to excess calories; Z68.39 Body mass index [BMI] 39.0-39.9, adult; E11.622 Type 2 diabetes mellitus with other skin ulcer; F17.210 Nicotine dependence, cigarettes, uncomplicated; B96.5 Pseudomonas (aeruginosa) (mallei) (pseudomallei) as the cause of diseases classified elsewhere; B95.2 Enterococcus as the cause of diseases classified elsewhere
CPT/HCPCS: 74177